=== PATIENT | female | born 1940 | race Caucasian/White ===

== ENCOUNTER 2017-01-18 23:59 | Inpatient (IN) | payer MEDICARE, OTHER ==
[~2017-01-18] VITALS: Ht 149.9 cm; Wt 59.1 kg
[2017-01-19] VITALS (24 sets, daily range): BP systolic 101–142; BP diastolic 52–80
--- NOTE | 2017-01-19 00:05 | Emergency Room Report ---
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 N Clinical Suspician of Infection? N Mental Status: 1 - Regular (Normal Baseline) Sepsis Risk:Low Sepsis Risk Have you (or family members/close friends) recently traveled outside the [place]? N If Yes, where/when: Have you had exposure to infectious disease within the past month? N TB? Other? Specify: Source patient, RN notes reviewed, family, old records Exam Limitations no limitations Comment acute onset of ant chest pain with sob and fast hr with no syncope - has hx of palpatations but no a fib Cardiac Chest Pain Chest pain indicative of cardiac Yes Timing/Duration 1-3 hours, constant Severity/Quality moderate, pressure Location central Chest Pain Radiation jaw(s), arm(s) Activities at Onset sleeping Nitro Today/Relief no nitro taken today Aspirin Treatment Today 325 mg x 1, provided by ED Beta ray treatment today no beta ray taken Cardiac risk factors + cardiovascular disease, + family history Prior Workup/Intervention no prior cardiac workup Timing/Duration this evening Severity moderate ALLERGIES Coded Allergies: Antihistamines - Alkylamine (Mild, 01/19/17) Penicillins (Mild, 01/19/17) Sulfa (Sulfonamide Antibiotics) (Mild, 01/19/17) codeine (Mild, 01/19/17) Home Medications Reported Medications Omeprazole (Omeprazole 40MG) 40 MG PO DAILY VERAPAMIL HCL (Verelan) 360 MG PO DAILY History Medical History General Angina: No [place]: No Hypertension? No Hyperlipidemia? Yes COPD? No Asthma? No CVA? No Seizures? No Diabetes? Yes GB Disease: No MRSA? No TB? No Cancer? No Immunization Hx DT/Tetanus 5-10 YRS Surgical Hx Previous Surgery?Y Tubal Ligation Hysterect Appendix Social History Smoking Hx Packs/day < 1 Pack Alcohol Alcohol: No Drugs none Review of Systems All Other Systems Reviewed and Negative Constitutional denies fever Eyes denies drainage ENT denies: ear discharge, epistaxis. Respiratory see HPI, denies cough, shortness of breath Cardiovascular see HPI, chest pain, palpitations, denies syncope Gastrointestinal denies abdominal pain, denies diarrhea, denies vomiting Genitourinary denies: dysuria, frequency, hesitancy, hematuria. Musculoskeletal denies back pain, denies joint pain, denies joint swelling, denies neck pain Skin denies rash Psychiatric/Neurological denies headache, denies seizure Physical Exam Vital Signs Vital Signs Date Time Temp Pulse Resp B/P Pulse O2 O2 Flow FiO2 Ox Delivery Rate 01/19 0053 120 18 130/72 97 2 01/19 0002 98.2 144 18 110/80 92 - WBC >12,000 or <4,000 or 10% bands? 2 or more SIRS Criteria Met? B/P:110/80 MAP:90 Creatinine >2.0? UA output<0.5ml/kg/hr for 2 hrs? Platelet count >100,000? Lactate >2.0mmol/1? INR >1.2 or PTT > than 60 sec? Evidence of Organ Dysfunction? Provider documented clinical suspician of infection? N Sepsis Criteria Count: 1 Sepsis Risk: Low Sepsis Risk General Appearance no apparent distress Eye Exam - bilateral eye PERRL, bilateral eye EOMI Ear, Nose, Throat normal ENT inspection Neck supple Respiratory Status No: respiratory distress. Lung Sounds bilateral: lungs clear. 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 No Results/Orders Laboratory Tests 01/19/17 0002: TSH 1.01, Thyroxine (T4) 6.9 01/19/17 0002: Sodium 139, Potassium 4.4, Chloride 105, Carbon Dioxide 27, BUN 17, Creatinine 0.8, Estimated Creat Clear 51, Estimated GFR (MDRD) 70, Glucose 204 H, Calcium 9.1, Total Bilirubin 0.1 L, AST 15, ALT 24, Alkaline Phosphatase 132 H, Creatine Kinase 27, CK-MB (CK-2) Rel Index 3.0, CK and CKMB Interp 0.8, Troponin I < 0.02, Total Protein 7.0, Albumin 3.4, Globulin 3.6 H, Albumin/Globulin Ratio 0.9 L, WBC 13.7 H, RBC 4.50, Hgb 12.9, Hct 40.5, MCV 89.8, RDW 13.2, Plt Count 392, MPV 7.7, Gran % 78.9, Gran # 10.8 H, Lymphocytes % 15.7, Monocytes % 5.0, Eosinophils % 0.2, Basophils % 0.1, Lymphocytes # 2.2, Monocytes # 0.7, Eosinophils # 0.0, Basophils # 0.0, PUBS MCHC 31.4 L, MCH 28.3 Current Medication Orders Sig/Cm Start time Last Medication Dose Route Stop Time Status Admin Aspirin 325 MG ONCE ONE 01/19 30 DC 01/19 PO 01/19 31 0035 Diltiazem HCl 10 MG ONCE ONE 01/19 30 DC 01/19 IV 01/19 31 0034 Diltiazem HCl 100 MG ONCE ONE 01/19 30 AC 01/19 Sodium Chloride 100 ML IV 01/19 1029 0030 Diltiazem HCl 0 .STK-MED ONE 01/19 25 DC IV Diltiazem HCl 0 .STK-MED ONE 01/19 25 DC IV Sodium Chloride 100 ML .STK-MED ONE 01/19 25 DC IV Aspirin 0 .STK-MED ONE 01/194 DC .ROUTE Sodium Chloride 10 ML PRN PRN 01/19 0015 AC IV 01/20 0003 Orders Procedure Date/time Status Decision to admit 01/19 010 Active THYROID STIMULATING HORMONE 01/19 30 Complete THYROXINE (T4) 01/19 30 Complete ELECTROCARDIOGRAM REQUEST 01/20 4 Active CHEST-PORTABLE 01/20 4 Active IV SALINE LOCK 01/20 4 Active CBC WITH AUTO DIFF 01/20 4 Complete CARDIAC ENZYMES 01/20 4 Complete CHEM 12 PROFILE 01/20 4 Complete 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 ST/Twave chgs XRAY/CT/US XRAY/CT/US XRAY chest XR interpretation by reviewed by me Xray Results normal/NAD Departure Departure Time of Disposition 0111 Disposition Still a Patient Clinical Impression Primary Impression: Atrial fibrillation with rapid ventricular response Condition STABLE Referrals [facility] (Family) discussed with dr parra ED Critical Care Critical Care No at 0111
[2017-01-19 00:13] LABS: LYMPH # 2.2 K/mm3 (0.7-4.5); LYMPH % 15.7 % (10-50.0)
[2017-01-19] MEDS ORDERED: OMEPRAZOLE40 MG PO (00:15)
[2017-01-19] MEDS ORDERED: VERELAN360 MG PO (00:16)
--- OUTSIDE RECORDS SUMMARY | 2017-01-19 00:25 | External Medical Summary Rpt | CCD ---
Demographics Preferred Language Barbadian Marital Status Unknown Faith Affiliation Unknown Race Unknown Ethnic Group Unknown Author Author , RICHARD RAMOS Address Unknown Phone Immunization No patient found.
--- OUTSIDE RECORDS SUMMARY | 2017-01-19 00:25 | External Medical Summary Rpt ---
Author Author RICHARD Oliveros, RICHARD [employer] Organization [employer] Address Unknown Phone Unavailable
--- OUTSIDE RECORDS SUMMARY | 2017-01-19 00:25 | External Medical Summary Rpt | CCD ---
Author Author [employer] Organization [employer] Address Unknown Phone Unavailable Purpose Continuity of Care Document - through 2016
--- OUTSIDE RECORDS SUMMARY | 2017-01-19 00:25 | External Medical Summary Rpt | CCD ---
Demographics Preferred Language Austrian Marital Status Unknown Confucianism Affiliation Unknown Race Unknown Ethnic Group Unknown Author Author , RICHARD RAMOS Address Unknown Phone Immunization No patient found.
--- OUTSIDE RECORDS SUMMARY | 2017-01-19 00:25 | External Medical Summary Rpt | CCD ---
Author Author RICHARD Address Unknown Phone [email or web address] Purpose Continuity of Care Document - through 2016
--- OUTSIDE RECORDS SUMMARY | 2017-01-19 00:25 | External Medical Summary Rpt | CCD ---
Author Author RICHARD Address Unknown Phone [email or web address] Purpose Continuity of Care Document - through 2016
[2017-01-19 00:28] LABS: HEMOGLOBIN 12.9 g/dL (12.2-16.2)
[2017-01-19 00:46] LABS: BUN 17 mg/dL (7-18); GFR (ESTIMATED) 70 ML/MIN (59-)
--- OUTSIDE RECORDS SUMMARY | 2017-01-19 01:13 | External Medical Summary Rpt | CCD ---
Author Author , RICHARD Organization RICHARD Address Unknown Phone [email or web address] Purpose Continuity of Care Document - 01-19-2017 through 2016 Results Labs Lab Lab Date Result Refere Interp Status Commen Order Detail nces retati t Range on CBC w auto diff (01-19-2017 00:02) Automat = 0.0 0-0.2 complet ed 017 K/MM3 ed blood 00:02 basophi l count (count/ vo Baso % = 0.1 % 0.1-2.0 complet 017 ed 00:02 Automat = 0.0 0.0-0.4 complet ed 017 K/mm3 ed blood 00:02 eosinop hil count Automat = 0.2 % 0.1-12. complet ed 017 0 ed blood 00:02 eosinop hils/10 0 leukocy t Blood = 10.8 1.8-7.8 complet granulo 017 K/mm3 ed cytes 00:02 automat ed count (numb Granulo = 78.9 37.0-80 complet cyte 017 % .0 ed percent 00:02 age Blood = 40.5 37.0-47 complet hematoc 017 % .0 ed rit 00:02 (volume fractio n) Blood = 12.9 12.2-16 complet hemoglo 017 g/dL .2 ed bin 00:02 measure ment (mass/v olum Absolut = 2.2 0.7-4.5 complet e 017 K/mm3 ed lymphoc 00:02 yte count Lymphoc = 15.7 10-50.0 complet yte 017 % ed count, 00:02 blood, automat ed Mean = 28.3 27-31.2 complet corpusc 017 pg ed ular 00:02 hemoglo bin (MCH) determ Automat = 31.4 31.8-35 complet ed 017 g/dl .4 ed erythro 00:02 cyte mean corpusc ular h Automat = 89.8 82.2-97 complet ed 017 fl .8 ed erythro 00:02 cyte mean corpusc ular v Absolut = 0.7 0.1-1.0 complet e 017 K/mm3 ed monocyt 00:02 e count [place] % = 5.0 % 1.7-9.3 complet 017 ed 00:02 Automat = 7.7 7.4-10. complet ed 017 fl 4 ed blood 00:02 platele t mean volume nevaeh Blood = 392 142-424 complet platele 017 K/mm3 ed t count 00:02 Red = 4.50 4.2-5.4 complet blood 017 M/mm3 ed cell 00:02 count Automat = 13.2 11.5-17 complet ed 017 % .5 ed erythro 00:02 cyte distrib ution width Blood = 13.7 4.8-10. complet leukocy 017 K/MM3 8 ed sharifa 00:02 count (number /volume ) Cardiac enzymes (01-19-2017 00:02) Serum = 3.0 0-4.0 complet or 017 U/L ed plasma 00:02 creatin e kinase MB (CK-M Serum = 0.8 0.0-3.6 complet or 017 ng/mL ed plasma 00:02 creatin e kinase MB measu Serum = 27 26-192 complet or 017 U/L ed plasma 00:02 creatin e kinase measure m Serum < 0.02 0.00-0. complet or 017 ng/mL 06 ed plasma 00:02 troponi n i.cardi ac measu Comprehensive metabolic panel (01-19-2017 00:02) Serum = 0.9 1.1-1.8 complet or 017 ed plasma 00:02 albumin /globul in mass ra Serum = 3.4 3.4-5.0 complet or 017 gm/dL ed plasma 00:02 albumin measure ment (mas Serum = 132 46-116 complet or 017 U/L ed plasma 00:02 alkalin e phospha tase nevaeh Serum = 0.1 0.2-1.0 complet or 017 mg/dL ed plasma 00:02 total bilirub in measure m Serum = 17 7-18 complet or 017 mg/dL ed plasma 00:02 urea nitroge n measure men Serum = 9.1 8.5-10. complet or 017 mg/dL 1 ed plasma 00:02 calcium measure ment (mas Serum = 105 98-107 complet or 017 mmoL/L ed plasma 00:02 chlorid e measure ment (mo Carbon = 27 21.0-32 complet dioxide 017 mmoL/L .0 ed 00:02 measure ment Serum = 0.8 0.55-1. complet or 017 mg/dL 02 ed plasma 00:02 creatin ine measure ment ( Estimat = 51 50-200 complet ion of 017 ML/MIN ed creatin 00:02 ine renal clearan ce Estimat = 70 59- complet ed 017 ML/MIN ed glomeru 00:02 lar filtrat ion rate (GF Comment: REFERENCE RANGE: >60 ML/MIN/1.73 SQUARE METERS Comment: If this patient is -Citizen Of The [place], then multiply the Comment: result by 1.210. Serum = 3.6 1.3-3.2 complet globuli 017 gm/dL ed n 00:02 measure ment (mass/v olume) Serum = 204 74-106 complet or 017 mg/dL ed plasma 00:02 glucose measure ment (mas Serum = 4.4 3.5-5.1 complet potassi 017 mmoL/L ed um 00:02 measure ment Serum = 139 136-145 complet sodium 017 mmoL/L ed measure 00:02 ment Serum = 15 15-37 complet or 017 U/L ed plasma 00:02 asparta te aminotr ansfera ALT = 24 12-78 complet (SGPT) 017 U/L ed ser/rogelio 00:02 s Protein = 7.0 6.4-8.2 complet total 017 gm/dL ed ser/rogelio 00:02 s Thyroxine (01-19-2017 00:02) Thyroxi = 6.9 4.7-13. complet ne 017 ug/dl 3 ed 00:02 Serum or plasma thyroid stimulating horm (01-19-2017 00:02) Serum = 1.01 0.358-3 complet or 017 uIU/ml .740 ed plasma 00:02 thyroid stimula ting horm
--- OUTSIDE RECORDS SUMMARY | 2017-01-19 01:13 | External Medical Summary Rpt | CCD ---
Author Author , RICHARD Organization RICHARD Address Unknown Phone [email or web address] Purpose Continuity of Care Document - 01-19-2017 [...] 017 K/mm3 ed monocyt 00:02 e count [place] % = 5.0 % 1.7-9.3 complet 017 [...] SQUARE METERS Comment: If this patient is -Czech, then multiply the Comment: result by 1.210. [...]
--- OUTSIDE RECORDS SUMMARY | 2017-01-19 01:13 | External Medical Summary Rpt | CCD ---
Demographics Preferred Language Divehi Marital Status Unknown Sikhism Affiliation Unknown Race Unknown Ethnic Group Unknown Author Author , RICHARD RAMOS Address Unknown Phone Immunization Unable to retrieve immunization data due to connection failure with Immunization Registry. Please try again later.
--- OUTSIDE RECORDS SUMMARY | 2017-01-19 01:13 | External Medical Summary Rpt | CCD ---
Demographics Preferred Language Serbian Marital Status Unknown Presybeterian Affiliation Unknown Race Unknown Ethnic Group Unknown Author Author , RICHARD RAMOS Address Unknown Phone Immunization Unable to retrieve immunization data due to connection failure with Immunization Registry. Please try again later.
--- OUTSIDE RECORDS SUMMARY | 2017-01-19 01:14 | External Medical Summary Rpt ---
Author Author RICHARD Oliveros, RICHARD [employer] Organization [employer] Address Unknown Phone Unavailable Results Thyroxine (T4) [Mass/volume] in Serum or Plasma Observa Value Referen Units Interpr Notes Date tion ce etation Range Thyroxine 4.7 - ug/dl Normal No Jan 19 (T4) 13.3 informati 2016 [Mass/vol on in 12:02 AM ume] in source Serum or data Plasma Thyrotropin [Units/volume] in Serum or Plasma Observa Value Referen Units Interpr Notes Date tion ce etation Range Thyrotrop 0.358 - uIU/ml Normal No Jan 19 in 3.740 informati 2016 [Units/vo on in 12:02 AM lume] in source Serum or data Plasma CBC W Auto Differential panel in Blood Observa Value Referen Units Interpr Notes Date tion ce etation Range Basophils 0 - 0.2 K/MM3 Normal No Jan 19 inform2016 [#/volume on in 12:02 AM ] in source Blood by data Automated count Basophils 0.1 - 2.0 % Normal No Jan 19 inform2016 leukocyte on in 12:02 AM s in source Blood by data Automated count Eosinophi 0.0 - 0.4 K/mm3 Normal No Jan 19 ls ati 2016 [#/volume on in 12:02 AM ] in source Blood by data Automated count Eosinophi 0.1 - % Normal No Jan 19 ls/100 12.0 inform2016 leukocyte on in 12:02 AM s in source Blood by data Automated count Granulocy 1.8 - 7.8 K/mm3 High No Jan 19 sharifa informati 2016 [#/volume on in 12:02 AM ] in source Blood by data Automated count Granulocy 37.0 - % Normal No Jan 19 sharifa/100 80.0 informati 2016 leukocyte on in 12:02 AM s in source Blood by data Automated count Hematocri 37.0 - % Normal No Jan 19 t [Volume 47.0 ati 2016 on in 12:02 AM Fraction] source of Blood data Hemoglobi 12.2 - g/dL No No Jan 19 n 16.2 informati informati 2016 [Mass/vol on in on in 12:02 AM ume] in source source Blood data data Lymphocyt 0.7 - 4.5 K/mm3 Normal No Jan 19 es inform2016 [#/volume on in 12:02 AM ] in source Unspecifi data ed specimen by Automated count Lymphocyt 10 - 50.0 % Normal No Jan 19 es inform2016 [#/volume on in 12:02 AM ] in source Unspecifi data ed specimen by Automated count Erythrocy 27 - 31.2 pg Normal No Jan 19 te mean inform2016 corpuscul on in 12:02 AM ar source hemoglobi data n [Entitic mass] Erythrocy 31.8 - g/dl Low No Jan 19 te mean 35.4 inform2016 corpuscul on in 12:02 AM ar source hemoglobi data n concentra tion [Mass/vol ume] by Automated count Erythrocy 82.2 - fl Normal No Jan 19 te mean 97.8 inform2016 corpuscul on in 12:02 AM ar volume source [Entitic data volume] by Automated count Monocytes 0.1 - 1.0 K/mm3 Normal No Jan 192016 [#/volume on in 12:02 AM ] in source Blood by data Automated count Monocytes 1.7 - 9.3 % Normal No Jan 19 /100 inform2016 leukocyte on in 12:02 AM s in source Blood by data Automated count Platelet 7.4 - fl Normal No Jan 19 mean 10.4 2016 volume on in 12:02 AM [Entitic source volume] data in Blood by Automated count Platelets 142 - 424 K/mm3 Normal No Jan 192016 [#/volume on in 12:02 AM ] in source Blood data Erythrocy 4.2 - 5.4 M/mm3 Normal No Jan 19 sharifa informati 2016 [#/volume on in 12:02 AM ] in source Amniotic data fluid Erythrocy 11.5 - % Normal No Jan 19 te 17.5 inform2016 distribut on in 12:02 AM ion width source [Entitic data volume] by Automated count Leukocyte 4.8 - K/MM3 High No Jan 19 s 10.8 informati 2016 [#/volume on in 12:02 AM ] in source Blood data
[2017-01-19] MEDS ORDERED: MILLIPRED5 MG PO (02:19)
[2017-01-19] MEDS ORDERED: ASPIRIN 81MG TA81 MG PO (02:21)
--- NOTE | 2017-01-19 04:56 | RADIOLOGY REPORT PS360 ---
CHEST-PORTABLE HISTORY: CHEST PAIN ORDERING PHYSICIAN: Myron Gaston MD PATIENT AGE: 76 years COMPARISON: 04/08/2010 FINDINGS: The cardiomediastinal silhouette and pulmonary vascularity are within normal limits. The lungs are clear without infiltrates, suspicious nodules, or pleural effusions. Calcified granulomas present in the right lung base. No acute bony abnormalities. IMPRESSION: No acute finding
--- NOTE | 2017-01-19 07:53 | PHARMACY CLINIC NOTE ---
Patient Demographics Patient Demographics Admission date: 01/19/17 Date: 01/19/17 Time: 075 Allergies Coded Allergies: Antihistamines - Alkylamine (Mild, 01/19/17) Penicillins (Mild, 01/19/17) Sulfa (Sulfonamide Antibiotics) (Mild, 01/19/17) codeine (Mild, 01/19/17) HEIGHT- FT: 4 IN: 11.00 K.081 VTE General Information Labs: Laboratory Tests 01/19 2 Hematology Hgb (12.2 - 16.2 g/dL) 12.9 Hct (37.0 - 47.0 %) 40.5 Plt Count (142 - 424 K/mm3) 392 Disclaimer The following section includes nursing documentation that has been pulled in for pharmacy review. Patient's VTE score: 1 Patient's VTE Risk: VERY LOW RISK Clinical trial participant? No VTE prophylaxis NQF [id number] VTE prophylaxis ordered? Yes Type of prophylaxis/treatment: SHEREE at 5702
[2017-01-19] MEDS ORDERED: MEDROL 4MG. DOSE4 MG PO (07:54)
--- NOTE | 2017-01-19 08:35 | HISTORY AND PHYSICAL REPORT ---
Demographics: Admit date: 01/19/17 Chief complaint: chest pain, palpitations PRIMARY DIAGNOSIS: atrial fib RVR Allergies: Coded Allergies: Antihistamines - Alkylamine (Mild, 01/19/17) Penicillins (Mild, 01/19/17) Sulfa (Sulfonamide Antibiotics) (Mild, 01/19/17) codeine (Mild, 01/19/17) History of present illness: History of present illness: 76 year old female with a history of atrial fibrillation, tobacco use and AAA presented to the ED last last with chest pain, diaphoresis and palpitations. Patient reports she felt good yesterday. She went to work at [employer] [place] and had no issues throughout the day. She went to bed around 2200 and woke up about an hour later with severe 10/10 midsternal chest pain that radiated up her neck and into her chin. It was accompanied by palpitations, diaphoresis and a "floating feeling." She had a similar episode 8-9 years ago and was hospitalized at [facility] for a few days. Denies previous heart cath or stents. She is following by Dr. Agarwal for her atrial fib which has been controlled since previous hospitalization. Patient further reports she was diagnosed with bronchitis by her PCP is undergoing treatment with azithromycin, albuterol and steroids. She has a productive cough, wheezing and mild shortness of air. On presentation to the ED she was found to be in uncontrolled A. Fib rate 150's. EKG showed no acute ischemia. CXR showed no acute pathology. She was started on a Cardizem infusion and admitted to step-down unit for further evaluation. Patient denies any further chest pain through the night. Serial EKGs and troponins were negative. Cardiology consulted for evaluation. Past medical history: Family HX Diabetes Yes CAD No Hypertension No Hyperlipidemia No Cancer Yes TB No Immunization HX DT/Tetanus 5-10 YRS Flu Refused Pneumonia Never Had TB Test in last year No General CAD? No Angina: No ND: No Hypertension? No Hyperlipidemia? Yes CHF? No DVT? No PE? No COPD? No Asthma? No Anemia? No GERD? Yes Gastric ulcers? No GI Bleed? No Hernia? No Thyroid Problems? No Hypothyroidism? No CVA? No Seizures? No Diabetes? Yes Insulin Dependent: No Insulin Pump: No Home FSBS? No Renal Insuffiency? No UTI? No Stones? No BPH? No GB Disease: No Nephritic Syndrome? No Asplenia? No Hepatitis? No Sickle Cell Disease? No Arthritis? No Migraines? No Cataracts? No Glaucoma? No MRSA? No HIV? No TB? No Anxiety? No Depression? No Cancer? No More? Yes Additional hx: ABDOMINAL AORTIC ANEURYSM Past Surgical HX Previous Surgery?Y Tubal Ligation Hysterect Appendix Current home meds: Reported Medications VERAPAMIL HCL (Verelan) 360 MG PO DAILY ASPIRIN (Aspirin) 81 MG PO DAILY Methylprednisolone (Medrol Dose Wolf) 4 MG PO UD #21 Omeprazole (Omeprazole 40MG) 40 MG PO DAILY Social Hx: Smoking HX Tobacco Yes Type Cigarettes Packs/day < 1 PACK Alcohol Alcohol: No Hx of Drug Use Drug Use? No Patien't marital status is Patient's support system is excellent Review of systems: Constitutional No: no symptoms reported. Eyes No: no symptoms reported. Ears, Nose, Mouth, Throat No no symptoms reported Respiratory see HPI, cough, shortness of breath, wheezing. Cardiovascular see HPI Gastrointestinal/Abdominal No no symptoms reported, No see HPI, No abdomen distended, No abdominal pain, No blood streaked bowels, No constipated, No diarrhea, No difficulty swallowing, No nausea, No poor appetite, No poor fluid intake, No rectal bleeding, No vomiting, No other Genitourinary No: no symptoms reported. Musculoskeletal No: no symptoms reported. Skin No: no symptoms reported. Neurological No: no symptoms reported. Psychiatric No: no symptoms reported. Exam: Lab data for last 24 hours: Laboratory Tests 01/19/17 0651: Creatine Kinase 22 L, CK-MB (CK-2) Rel Index 4.5 H, CK and CKMB Interp 1.0, Troponin I < 0.02 01/19/17 0400: Creatine Kinase 23 L, CK-MB (CK-2) Rel Index 4.3 H, CK and CKMB Interp 1.0, Troponin I < 0.02 01/19/17 0002: TSH 1.01, Thyroxine (T4) 6.9 01/19/17 0002: B-Natriuretic Peptide 38, Triglycerides 108, Cholesterol 255 H, LDL Cholesterol 170.4 H, VLDL Cholesterol 21.6, HDL Cholesterol 63.0 H 01/19/17 0002: Sodium 139, Potassium 4.4, Chloride 105, Carbon Dioxide 27, BUN 17, Creatinine 0.8, Estimated Creat Clear 51, Estimated GFR (MDRD) 70, Glucose 204 H, Calcium 9.1, Total Bilirubin 0.1 L, AST 15, ALT 24, Alkaline Phosphatase 132 H, Creatine Kinase 27, CK-MB (CK-2) Rel Index 3.0, CK and CKMB Interp 0.8, Troponin I < 0.02, Total Protein 7.0, Albumin 3.4, Globulin 3.6 H, Albumin/Globulin Ratio 0.9 L, WBC 13.7 H, RBC 4.50, Hgb 12.9, Hct 40.5, MCV 89.8, RDW 13.2, Plt Count 392, MPV 7.7, Gran % 78.9, Gran # 10.8 H, Lymphocytes % 15.7, Monocytes % 5.0, Eosinophils % 0.2, Basophils % 0.1, Lymphocytes # 2.2, Monocytes # 0.7, Eosinophils # 0.0, Basophils # 0.0, PUBS MCHC 31.4 L, MCH 28.3 Admission vital signs: 1ST Vital Signs Result Date Time Pulse Ox 92 01/19 2 B/P 110/80 01/19 2 Temp 98.2 01/19 2 Pulse 144 01/19 2 Resp 18 01/19 2 O2 Flow Rate 2 01/19 0053 O2 Delivery ROOM AIR 01/19 0215 Exam General appearance: alert, active, awake, face symmetric, no acute distress Eyes: anicteric ENT: mucous membranes moist Neck: non-tender, no carotid bruit, no JVD, full range of motion, range of motion Cardiovascular: no murmur, normal peripheral pulses, no peripheral edema, irregularly irregular Plan: Problem List 1. Atrial fibrillation with rapid ventricular response Assessment/Plan Rate improved on Cardizem infusion, noted at 110 this morning. Given her symptoms and history there is high suspicion for coronary disease. Consult cardiology for [facility] consideration. 2. Chest pain Assessment/Plan See above. 3. Bronchitis Assessment/Plan Start azithromycin and duonebs. She likely has some underlying COPD given her smoking history. CXR unremarkable. 4. GERD (gastroesophageal reflux disease) Assessment/Plan Well controlled on omeprazole. Plan: See above at 0900
--- NOTE | 2017-01-19 09:05 | CONSULT NOTE ---
Standard Demographics Patient Demo Date of Consultation: 01/19/17 Referring Provider: Myron Gaston MD Reason for Consultation: A. fib with RVR, Angina PRIMARY DIAGNOSIS: atrial fib RVR Problem list Problem list: 1. Tobacco use of one half to one pack per day 60 years. 2. Hypertension 3. History of palpitations, controlled with verapamil therapy 4. History of abdominal aortic aneurysm, last reported measurement of 4.6 cm approximately 2014. 5. History of prediabetes per patient. She does not take medication and controls her blood sugars with her diet. History of present illness: History of present illness: 76-year-old white female with history of hypertension, palpitations and tobacco use was awakened from sleep last evening for severe substernal chest pain with radiation into the neck and shoulders. She came to the emergency department for evaluation was found to be in atrial fibrillation with a rapid ventricular response in the 140s beat per minute. Electrocardiogram shows atrial fibrillation with a rapid ventricular response with nonspecific ST-T wave abnormalities inferiorly and laterally. Patient was started on IV diltiazem with improvement in heart rate and symptoms. Due to the severity of the chest pain and cardiac risk factors cardiology consulted for evaluation and recommendation. Troponins have returned normal. Patient has pain free at this time. She remains on IV diltiazem with a heart rate of 100-110 bpm. Past Medical History: General: Hypertension No CVA No Seizures No TB No COPD No Asthma No Diabetes Yes Insulin Dependent No Insulin Pump No Angina No MN No Hyperlipidemia Yes Urinary No Cancer No Rheumatic H.D. No Ulcers No MRSA No GB Disease No Other ACID REFLUX Additional hx ABDOMINAL AORTIC ANEURYSM Past Surgical HX: Previous Surgery?Y Tubal Ligation Hysterect Appendix Allergies Coded Allergies: Antihistamines - Alkylamine (Mild, 01/19/17) Penicillins (Mild, 01/19/17) Sulfa (Sulfonamide Antibiotics) (Mild, 01/19/17) codeine (Mild, 01/19/17) Home medications: Reported Medications VERAPAMIL HCL (Verelan) 360 MG PO DAILY ASPIRIN (Aspirin) 81 MG PO DAILY Methylprednisolone (Medrol Dose Wolf) 4 MG PO UD #21 Omeprazole (Omeprazole 40MG) 40 MG PO DAILY Current Medications: Current Medications Albuterol/Ipratropium 3 ML QIDRT INH Azithromycin 500 MG DAILY IV Sodium Chloride 250 ML Polyethylene Glycol 17 GM DAILY PO Sodium Chloride 100 ML .STK-MED ONE IV (DC) Diltiazem HCl 0 .STK-MED ONE IV (DC) Diltiazem HCl 100 MG .Q10H IV Sodium Chloride 100 ML Digoxin 0.125 MG ONCE ONE IV (DC) Digoxin 0 .STK-MED ONE .ROUTE (DC) Acetaminophen 650 MG Q4HP PRN PO Enoxaparin Sodium 50 MG ONCE ONE SC (DC) Influenza Virus Vaccine Quadrival 0.5 ML PRN PRN IM Nicotine 21 MG DAILYP PRN TD Ondansetron HCl 4 MG Q6HP PRN IV Sodium Chloride 1,000 ML .Q20H IV Enoxaparin Sodium 0 .STK-MED ONE SC (DC) Aspirin 325 MG ONCE ONE PO (DC) Diltiazem HCl 10 MG ONCE ONE IV (DC) Diltiazem HCl 100 MG ONCE ONE IV Sodium Chloride 100 ML Diltiazem HCl 0 .STK-MED ONE IV (DC) Diltiazem HCl 0 .STK-MED ONE IV (DC) Sodium Chloride 100 ML .STK-MED ONE IV (DC) Aspirin 0 .STK-MED ONE .ROUTE (DC) Sodium Chloride 10 ML PRN PRN IV Immunization HX DT/Tetanus 5-10 YRS AGO Flu Refused Pneumonia Never Had TB Test in last year No Family history Family HX Family Hx Insignificant No Diabetes Yes CAD No Hypertension No Hyperlipidemia No Cancer Yes TB No Social Hx: Smoking HX Tobacco Yes Type Cigarettes Packs/day < 1 PACK Alcohol Alcohol: No Hx of Drug Use Drug Use? No Patien't marital status is Patient's support system is excellent Review of systems: Constitutional see HPI. Respiratory SOB with excertion, wheezing. Cardiovascular see HPI, chest pain Gastrointestinal/Abdominal No no symptoms reported Genitourinary No: no symptoms reported. Musculoskeletal No: no symptoms reported. Neurological No: no symptoms reported. Exam: Admission Vital Signs: 1ST Vital Signs Result Date Time Pulse Ox 92 01/19 2 B/P 110/80 01/19 2 Temp 98.2 01/19 2 Pulse 144 01/19 2 Resp 18 01/19 2 O2 Flow Rate 2 01/19 0053 O2 Delivery OXYGEN 01/19 201 Last Vital Signs: Vital Signs Result Date Time Pulse Ox 95 01/19 814 B/P 113/56 01/19 814 O2 Flow Rate 1 01/19 814 Temp 98.2 01/19 814 Pulse 108 01/19 0814 Resp 20 01/19 08 O2 Delivery OXYGEN 01/19 0600 Exam General appearance: alert, awake, no acute distress Neck: no carotid bruit, no JVD Cardiovascular: irregularly irregular Respiratory: wheezing ABD: soft, no tenderness Extremities: moves all, no peripheral edema Neuro: alert, intact, oriented Laboratory data: Laboratory Tests 01/19/17 0651: Creatine Kinase 22 L, CK-MB (CK-2) Rel Index 4.5 H, CK and CKMB Interp 1.0, Troponin I < 0.02 01/19/17 0400: Creatine Kinase 23 L, CK-MB (CK-2) Rel Index 4.3 H, CK and CKMB Interp 1.0, Troponin I < 0.02 01/19/17 0002: TSH 1.01, Thyroxine (T4) 6.9 01/19/17 0002: B-Natriuretic Peptide 38, Triglycerides 108, Cholesterol 255 H, LDL Cholesterol 170.4 H, VLDL Cholesterol 21.6, HDL Cholesterol 63.0 H 01/19/17 0002: Sodium 139, Potassium 4.4, Chloride 105, Carbon Dioxide 27, BUN 17, Creatinine 0.8, Estimated Creat Clear 51, Estimated GFR (MDRD) 70, Glucose 204 H, Calcium 9.1, Total Bilirubin 0.1 L, AST 15, ALT 24, Alkaline Phosphatase 132 H, Creatine Kinase 27, CK-MB (CK-2) Rel Index 3.0, CK and CKMB Interp 0.8, Troponin I < 0.02, Total Protein 7.0, Albumin 3.4, Globulin 3.6 H, Albumin/Globulin Ratio 0.9 L, WBC 13.7 H, RBC 4.50, Hgb 12.9, Hct 40.5, MCV 89.8, RDW 13.2, Plt Count 392, MPV 7.7, Gran % 78.9, Gran # 10.8 H, Lymphocytes % 15.7, Monocytes % 5.0, Eosinophils % 0.2, Basophils % 0.1, Lymphocytes # 2.2, Monocytes # 0.7, Eosinophils # 0.0, Basophils # 0.0, PUBS MCHC 31.4 L, MCH 28.3 Plan: Assessment: 1. Atrial fibrillation with a rapid ventricular response, improved with IV diltiazem. Echocardiogram has been performed this morning and results are pending at this time. Patient did receive Lovenox therapy last evening. Thyroid functions are normal. Concern for ischemic mediated etiology. 2. Chest pain with abnormal electrocardiogram. Troponins normal but patient with cardiac risk factors and a COLLEEN score of 3 (age, risk factors, daily aspirin use ) would recommend proceeding with cardiac catheterization. Patient would not be a candidate for stress testing due to severe lung disease and wheezing on exam. 3. Tobacco use, cessation recommended 4. Hypertension, controlled 5. Lipidemia with LDL of 170 this admission. Will start statin therapy. 6. Prediabetic per family and patient. 7. AAA of 4.6 cm per patient and family in 2015. Will obtain abdominal ultrasound prior to cath. Recommendations: Discussed with Dr. Rey. See above. at 0905
--- NOTE | 2017-01-19 13:34 | RADIOLOGY REPORT PS360 ---
CARDIAC CATHETERIZATION DATE OF CATHETERIZATION:01/19/2017 11:56 AM PROCEDURES: 1. Left heart catheterization 2. Left ventriculogram 3. Selective coronary angiogram 4. Drug-eluting stent deployment to the proximal circumflex artery 5. Drug-eluting stent deployment to the proximal LAD 6. Drug-eluting stent deployment to the proximal mid chronically occluded right coronary artery INDICATION FOR TEST: 1. Unstable angina 2. Coronary artery disease 3. Atrial fibrillation Informed consent was obtained prior to the procedure. COMPLICATIONS: None ESTIMATED BLOOD LOSS: Less than 10 ml. TECHNIQUE: One percent lidocaine used to anesthetize the right anterior aspect of the wrist. The right radial artery was accessed via the Seldinger technique. A 6 [place] sheath was placed in the right radial artery. 2.5 mg of verapamil, 800 mcg of nitroglycerin and 5000 U Heparin were given through the arterial sheath. A trap catheter was used to perform left heart catheterization left ventriculogram and selective coronary angiogram. At the end of the diagnostic angiogram and additional 2000 units of heparin was administered intravenously. An [employer] left guide catheter was placed in the left main artery and a choice PT extra-support wire was placed into the circumflex artery and then into the first obtuse marginal artery. A 3 mm x 26 mm resolute Brock stent was deployed at 15 shai reducing the severe stenosis to 0%. COLLEEN-3 flow was present before and after the procedure. The wire was pulled back and placed into the LAD and a 3.5 x 26 mm resolute [place] stent was deployed at 18 shai. A 4 mm x 12 mm balloon was in placed in the proximal aspect of the stent and deployed at 20 shai in order to post dilate. COLLEEN-3 flow was present before and after the procedure. 800 mcg of intracoronary nitroglycerin was administered. The guide catheter was then used intubate the right coronary artery and a fresh choice PT floppy was placed into the chronic occlusion. I was unable to pass the wire therefore 2 mm x 12 mm sprinter balloon was placed on the wire and then in the proximal portion of the right coronary artery. This allowed additional support and a then pushed the wire through the chronic occlusion. The balloon was inflated at 20 shai on 2 occasions. Following this a 3 mm x 34 mm resolute [place] stent was deployed at 15 shai reducing the subtotal occlusion to 0%. COLLEEN I flow was present at the beginning of the procedure and COLLEEN-3 flow at the end of the procedure. 800 mcg of intracoronary nitroglycerin was then administered. The first ACT 330 seconds prior to any stent implantation. The closing ACT 278 seconds therefore an additional 2000 units of heparin was administered. Patient was sedate and unable to take Brilinta at the time of dictation. The apparatus was removed the sheath was removed good hemostasis was achieved using TR banding patient was transferred to the postop holding area in stable condition ANGIOGRAPHIC RESULTS: 1. The left main artery normal 2. The left anterior descending artery has proximal complex 50, 60, and 70% stenoses followed by mid vessel sequential 40% stenoses after a large second diagonal artery. 3. The circumflex artery is nondominant yet still gives rise to 2 large obtuse marginal arteries. Proximally the circumflex artery has an 82% stenosis which extends into the ostium of this large 3 mm first obtuse marginal artery. The first obtuse marginal artery has an ostial 90% stenosis 4. The right coronary artery is a dominant vessel and proximally occluded which fills via left to right collaterals and right to right collaterals 5. The WILLIAMSON ventriculogram reveals hyperdynamic ventricle with an estimated ejection fraction of 80-85% 6. The left ventricular end-diastolic pressure 20 mmHg IMPRESSION: 1. Severe three-vessel coronary artery disease as described above 2. Successful complete percutaneous revascularization 3. Successful stenting the proximal LAD severe disease reduced to 0% with 1 drug-eluting stent 4. Successful stenting of the proximal circumflex artery extending into the large obtuse marginal artery, severe disease reduced to 0% with 1 drug-eluting stent 5. Chronically occluded dominant right coronary artery with successful revascularization and drug-eluting stenting 100% stenosis reduced to 0% with 1 drug-eluting stent 6. Hyperdynamic ejection fraction at 85% 7. Mildly elevated LVEDP PLAN: 1. Brilinta and aspirin 2. Anticoagulation for atrial fibrillation 3. Patient needs diltiazem or verapamil because of her hyperdynamic ventricle as well as beta blockers such as bisoprolol or long-acting metoprolol. 4. Avoid digoxin due to her hyperdynamic ventricle 5. LDL less than 55 6. Cardiac rehabilitation 7. Avoidance of tobacco products 8. Aggressive risk factor modification
--- NOTE | 2017-01-19 13:36 | RADIOLOGY REPORT PS360 ---
US AORTA (RETROPERITONEAL) HISTORY: ABDOMINAL AORTIC ANEURYSM ORDERING PHYSICIAN: Myron Gaston MD PATIENT AGE: 76 years COMPARISON: None FINDINGS: There is generalized atherosclerotic calcified plaque of the aorta with tortuosity. There is mild fusiform dilatation of the abdominal aorta just above the umbilicus measuring up to 4 cm with atherosclerotic plaque and mural thrombus at this region. The proximal common iliacs are unremarkable. IMPRESSION: 4 cm infrarenal abdominal aortic aneurysm with atherosclerotic changes.
--- NOTE | 2017-01-19 15:22 | RADIOLOGY REPORT PS360 ---
PROCEDURE: 2-D M-mode and color Doppler study INDICATIONS FOR THE TEST: Chest pain X COPD Heart Murmur Tobacco Smoking Palpitations Fatigue Syncope Edema Hypertension Diabetes Mellitus Rheumatic Fever SOB MELENDREZ Obesity Hyperlipidemia Family History HD Additional History AF PATIENT INFORMATION HEIGHT: 59 WEIGHT:119 GENDER: Female B/P:96/58 2-D/M-MODE INTERPRETATION: 2-D MEASUREMENTS OBSERVED VALUES IN CMS Right Ventricular Dimension (RVDd) 1.6 Interventricular Septum (Thickness)(IVsd) .9 Left Ventricular Internal Dimensions(LVIDd) 4.8 Left Ventricular Posterior Wall (Thickness)(LVPWd) .9 Aortic Root 2.8 Aortic Cusp Separation 1.6 Left Atrial Dimensions (LAD) 3.2 2D 1. Left atrium is normal size, left ventricle is normal size, there is no concentric left ventricular hypertrophy, visually estimated ejection fraction 55% with no obvious regional wall motion abnormality. 2. The right atrium and right ventricle are mildly enlarged with normal contractility. 3. The aortic valve, mitral and tricuspid valvular grossly normal. 4. The pulmonic valve is poorly visualized. 5. There is no significant pericardial effusion noted. DOPPLER INTERROGATION: Doppler interrogation of the aortic, mitral and tricuspid valvular presence of mild mitral and tricuspid regurgitation, calculated right ventricular systolic pressure is 40 mmHg consistent with mild pulmonary hypertension. CONCLUSION: 1. Normal left ventricle size, preserved left ventricular systolic function, visually estimated ejection fraction 55% with no obvious regional wall motion abnormality. 2. Mild mitral and tricuspid regurgitation, calculated right ventricular systolic pressure is 40 mmHg consistent with mild pulmonary hypertension. 3. No significant pericardial effusion noted.
[2017-01-20] VITALS: BP 117/64
[2017-01-20 02:00] VITALS: BP 110/71
[2017-01-20 04:00] VITALS: BP 123/59
[2017-01-20 05:53] LABS: LYMPH # 3.4 K/mm3 (0.7-4.5); LYMPH % 29.4 % (10-50.0)
[2017-01-20 06:00] VITALS: BP 116/59
[2017-01-20 06:00] LABS: HEMOGLOBIN 11.5 g/dL (12.2-16.2)
[2017-01-20 08:00] VITALS: BP 133/81
--- NOTE | 2017-01-20 08:02 | DISCHARGE SUMMARY STANDARD ---
Demographics Admit date: 01/19/17 Discharge date: 01/20/17 History of present illness History of present illness 76-year-old white female with history of hypertension, palpitations and tobacco use was awakened from sleep last evening for severe substernal chest pain with radiation into the neck and shoulders. She came to the emergency department for evaluation was found to be in atrial fibrillation with a rapid ventricular response in the 140s beat per minute. Electrocardiogram shows atrial fibrillation with a rapid ventricular response with nonspecific ST-T wave abnormalities inferiorly and laterally. Patient was started on IV diltiazem with improvement in heart rate and symptoms. Due to the severity of the chest pain and cardiac risk factors cardiology consulted for evaluation and recommendation. Troponins have returned normal. Patient has pain free at this time. She remains on IV diltiazem with a heart rate of 100-110 bpm. Hospital Course Hospital Course: Patient was admitted, given her pain symptoms and risk factors she was taken to cardiology if lab for heart cath. She was found to have significant three-vessel disease and 3 stents were placed. Her heart function was noted to be normal. This procedure resolved her atrial fibrillation. She was observed overnight, felt well. She'll be discharged home today, as her exam today reveals regular heart rate, no murmurs. Lungs are clear except for some smoker's rhonchi. Abdomen soft and she has no edema. Neurologic exam is intact. She'll be discharged on cardiac medicines as noted, nicotine patch, follow-up with cardiology in 4 days and with my office in one week as she wishes to transfer care to our practice. Discharge diagnoses Problem List 1. Atrial fibrillation with rapid ventricular response 2. Chest pain 3. Bronchitis 4. GERD (gastroesophageal reflux disease) 5. Coronary atherosclerosis Medications Medications: Discharge meds are as noted. Follow up Follow up in office in: 6 DAYS with: ALEXANDRE BRANDT APRN at 0802
[2017-01-20] MEDS ORDERED: ASPIRIN 81MG TA81 MG PO (08:04)
[2017-01-20] MEDS ORDERED: BRILINTA90 MG PO (08:05)
[2017-01-20] MEDS ORDERED: LIPITOR40 M1 PO (08:05)
[2017-01-20] MEDS ORDERED: HABITROL21 MG/24 H TD (08:06)
[2017-01-20 08:52] VITALS: BP 116/59
--- NOTE | 2017-01-20 09:00 | ACUTE CARE PROGRESS NOTE (QUA) ---
Progress Notes Subjective Date 01/20/17 Time 0855 Note 76 yo WF in bed in NAD. States she is feeling much better. Relates she is working on weaning off cigarettes. Objective Findings Last VS-Temp:98.1 B/P:116/59 Pulse:59 Resp:16 SaO2:99 OXYGEN Last weight lbs:130 oz:4 K.08 Method:Bed Scales Exam General appearance: alert, awake, no acute distress Cardiovascular: regular rate & rhythm Respiratory: diminished breath sounds Reviewed: medications, vital signs, lab results Assessment/Plan Problem List 1. Atrial fibrillation with rapid ventricular response 2. Chest pain 3. Bronchitis 4. GERD (gastroesophageal reflux disease) 5. Coronary atherosclerosis Assessment/Plan: 3 vessel stenting. On DAPT, statin and CCB (she will resume verapamil at home). No beta ray due to COPD and wheezing on exam. Patient condition Stable Plan: continue current care, Agree with discharge home. Follow up next week. Will need to monitor for recurrent a.fib and possible additional a/c with elevated CHADS-VASc score. This inpt stay is expected to cross 2 MNs from start of care Yes at 0904
== END 2017-01-20 09:20 | disposition home or self-care (01) | DRG 247 ==
LOC: ER 23:59 → 2ND 01-19 01:09
PROVIDERS: Emergency Medicine; Internal Medicine
PROC: 027236Z Dilation of Coronary Artery, Three Arteries with Three Drug-eluting Intraluminal Devices, Percutaneous Approach (ICD-10-PCS; principal; 2017-01-19 11:00)
PROC: B2151ZZ Fluoroscopy of Left Heart using Low Osmolar Contrast (ICD-10-PCS; principal; 2017-01-19 11:00)
PROC: B2111ZZ Fluoroscopy of Multiple Coronary Arteries using Low Osmolar Contrast (ICD-10-PCS; principal; 2017-01-19 11:00)
PROC: 4A023N7 Measurement of Cardiac Sampling and Pressure, Left Heart, Percutaneous Approach (ICD-10-PCS; principal; 2017-01-19 11:00)
DX: I25.110 Atherosclerotic heart disease of native coronary artery with unstable angina pectoris (principal); J44.9 Chronic obstructive pulmonary disease, unspecified; R06.09 Other forms of dyspnea; I48.91 Unspecified atrial fibrillation; Z72.0 Tobacco use; I10 Essential (primary) hypertension
CPT/HCPCS: C1725; C1769; C1876; J0456; J1644; Q9967

== ENCOUNTER 2017-02-06 11:21 | Emergency (ER) | payer MEDICARE, OTHER ==
[~2017-02-06] VITALS: Ht 149.9 cm; Wt 58.1 kg
[~2017-02-06 11:21] MED LIST: ASPIRIN 81MG TA81 MG PO; BRILINTA90 MG PO; HABITROL21 MG/24 H TD; LIPITOR40 M1 PO; MEDROL 4MG. DOSE4 MG PO; MILLIPRED5 MG PO; OMEPRAZOLE40 MG PO; VERELAN360 MG PO
[2017-02-06 11:35] LABS: HEMOGLOBIN 11.8 g/dL (12.2-16.2); LYMPH # 2.3 K/mm3 (0.7-4.5); LYMPH % 29.7 % (10-50.0)
[2017-02-06] MEDS ORDERED: BISOPROLOL FUMA10 MG PO (11:35)
[2017-02-06] MEDS ORDERED: BUPROPION HYDR150 M1 PO (11:35)
--- NOTE | 2017-02-06 11:45 | Emergency Room Report ---
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 PT REPORTS HAS BEEN FEELING WEAK FOR SEVERAL DAYS. 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 N Clinical Suspician of Infection? N Mental Status: 1 - Regular (Normal Baseline) Sepsis Risk:Low Sepsis Risk Have you (or family members/close friends) recently traveled outside the [place]? N If Yes, where/when: Have you had exposure to infectious disease within the past month? N TB? Other? Specify: Patient at rest in car today when felt sharp intermittent chest pain, substernal , nonradiating, no SOB, no n/v, no diaphoresis, then steady, then self resolving s/p one hour. Noted diminished HR this week; newly on Verapamil by her report s/ p stent placement three weeks ago per Dr. Rey. No calf pain. No syncope. Denies palpitations. ALLERGIES Coded Allergies: Antihistamines - Alkylamine (Mild, 01/19/17) Penicillins (Mild, 01/19/17) Sulfa (Sulfonamide Antibiotics) (Mild, 01/19/17) codeine (Mild, 01/19/17) Home Medications Active Scripts ASPIRIN (Aspirin) 81 MG PO DAILY #30 TAB Ref 1 Prov: 01/20/17 Ticagrelor (Brilinta) 90 MG PO BID #60 TAB Ref 3 Prov: 01/20/17 Atorvastatin Calcium (Lipitor 40MG) 40 MG PO QHS #30 TAB Ref 2 Prov: 01/20/17 Reported Medications VERAPAMIL HCL (Verelan) 360 MG PO DAILY Omeprazole (Omeprazole 40MG) 40 MG PO DAILY Bupropion Hcl (Bupropion HCl Sr) 150 MG PO BID Bisoprolol Fumarate 10 MG PO DAILY History Medical History General CAD? Yes Angina: No [place]: No Hypertension? Yes Hyperlipidemia? Yes CHF? No DVT? No PE? No COPD? No Asthma? No Anemia? No GERD? Yes Gastric ulcers? No GI Bleed? No Hernia? No Thyroid Problems? No Hypothyroidism? No CVA? No Seizures? No Diabetes? Yes Insulin Dependent: No Insulin Pump: No Home FSBS? No Renal Insuffiency? No End Stage Renal Disease? No UTI? No Stones? No BPH? No GB Disease: No Nephritic Syndrome? No Asplenia? No Hepatitis? No Sickle Cell Disease? No Arthritis? No Migraines? No Cataracts? No Glaucoma? No MRSA? No HIV? No TB? No Anxiety? No Depression? No Cancer? No More? Yes Additional hx: ABDOMINAL AORTIC ANEURYSM Immunization Hx DT/Tetanus 5-10 YRS Flu Refused Pneumonia Refuses Surgical Hx Previous Surgery?Y Tubal Ligation Hysterect Appendix CARDIAC STENTS X2 2017 Family History Family Hx Diabetes Yes CAD No Hypertension No Hyperlipidemia No Cancer Yes TB No Social History Smoking Hx Smoker: Former Smoker Tobacco: No Packs/day < 1 Pack Alcohol Alcohol: No Review of Systems All Other Systems Reviewed and Negative Cardiovascular see HPI Physical Exam Vital Signs Vital Signs Date Time Temp Pulse Resp B/P Pulse O2 O2 Flow FiO2 Ox Delivery Rate 02/06 1330 46 18 123/67 99 02/06 1257 48 18 111/59 96 02/06 1224 53 18 147/94 98 02/06 1121 98.1 47 18 128/79 97 General Appearance normal appearance, WD/WN, no apparent distress Eye Exam - bilateral eye normal exam, bilateral eye PERRL, bilateral eye EOMI Neck normal inspection, non-tender, supple, full range of motion Respiratory Status Yes: trachea midline, chest symmetrical, non tender chest. No: respiratory distress, tender on palpation, use of accessory muscles, pain on inspiration, pain on expiration, productive cough, non productive cough. Lung Sounds bilateral: normal breath sounds, lungs clear. Cardiovascular normal exam, regular rate/rhythm, no peripheral edema, no gallop, no JVD, no murmur, no rub, normal peripheral pulses (bradycardic on monitor) Peripheral Pulses Pulses normal Yes Gastrointestinal normal bowel sounds, normal exam, non tender, soft, no organomegaly, no pulsatile mass Extremities non-tender, normal range of motion, normal inspection, no calf tenderness, no pedal edema Strength 5 Upper Ext (L), 5 Upper Ext (R), 5 Lower Ext (L), 5 Lower Ext (R) Neurologic alert, normal exam, no motor/sensory deficits, oriented x 3 Glascow Coma Scale Glascow Coma Scale Response Value EYE response: 4 Spontaneously 4 MOTOR response: 6 OBEYS 6 VERBAL response: 5 Oriented & Converses 5 Total 15 Skin intact, normal color, warm/dry Medical Decision Making LABS/Meds/Orders Pt receiving controlled substance in ED? No Results/Orders Laboratory Tests 02/06/17 1310: Troponin I < 0.02 02/06/17 1125: Sodium 138, Potassium 4.4, Chloride 105, Carbon Dioxide 26, BUN 12, Creatinine 0.9, Estimated Creat Clear 48 L, Estimated GFR (MDRD) 61, Glucose 127 H, Calcium 8.6, Total Bilirubin 0.3, AST 11 L, ALT 15, Alkaline Phosphatase 103, Creatine Kinase 30, CK-MB (CK-2) Rel Index 1.7, CK and CKMB Interp < 0.5, Troponin I < 0.02, Total Protein 6.4, Albumin 3.4, Globulin 3.0, Albumin/ Globulin Ratio 1.1, WBC 7.6, RBC 4.07 L, Hgb 11.8 L, Hct 36.3 L, MCV 89.3, RDW 13.0, Plt Count 308, MPV 8.0, Gran % 59.8, Gran # 4.5, Lymphocytes % 29.7, Monocytes % 6.8, Eosinophils % 3.0, Basophils % 0.7, Lymphocytes # 2.3, Monocytes # 0.5, Eosinophils # 0.2, Basophils # 0.1, PUBS MCHC 32.5, MCH 29.0 Current Medication Orders Sig/Cm Start time Last Medication Dose Route Stop Time Status Admin Sodium Chloride 10 ML PRN PRN 02/06 1130 AC IV 02/07 112 Orders Procedure Date/time Status TROPONIN I 02/06 1304 Complete ELECTROCARDIOGRAM REQUEST 02/06 1127 Active CHEST(2 VIEWS-NOT PORTABLE) 02/06 1127 Active IV SALINE LOCK 02/06 1127 Active CLASSROOM PARAPROFESSIONAL 02/06 1127 Active CBC WITH AUTO DIFF 02/06 1127 Complete CARDIAC ENZYMES 02/06 1127 Complete CHEM 12 PROFILE 02/06 1127 Complete 12 LEAD EKG-[facility] (INITIAL) 02/06 UNK Active CM/EKG CM/EKG EKG rate, NSR, rhythm, no evid. of ischemic chgs, normal QRS, normal EKG ( short ND, sinus arrhy;Bradycar) XRAY/CT/US XRAY/CT/US XRAY chest XR interpretation by reviewed by me Xray Results normal/NAD, prior calcified granulomas noted; somewhat calcified aortic knob Consult MD Physician Consult Consult/PCP Verapamil to 180 mg PO QD per Jerson Morrison in Cardiology. Hx Afib.f/ u cards Time Called 1214 Reason Pt. Condition, Cardiology eval/care Comments pt resting comfortably but bradycardic; will consult cardiology service for recommendations COLLEEN Score for N-Stemi/Angina COLLEEN N-STEMI SCORE COLLEEN N-STEMI SCORE Response Value Age of patient 65 yrs or more 1 Number of risk factors for CAD Presence of 3 or more 1 Prior coronary artery stenosis (seen in angiography) 50% or more 1 ST-Segment deviation on ECG (>1 min) Absent 0 Prior aspirin intake ASA intake in last 7 days 1 Severe anginal chest pain No or 1 episode in 24h 0 Elevated cardiac markers(CK-MB or troponin) Absent 0 Total 4 Departure Departure Time of Disposition 1353 Disposition DC Home or Self Care(routine) Clinical Impression Primary Impression: Atypical chest pain Secondary Impressions: Bradycardia, drug induced Condition STABLE Referrals Marilin HARRIS,Myron (Family) Heath Rey MD Patient Instructions DI for Bradycardia Additional Instructions Jerson Morrison says to DECREASE Verapamil to only take 180 mg by mouth daily: that's half of what you are taking now. Continue all other medications as prescribed. See Dr. Rey this week for follow up. Discharge Counseling Counseled pt/family regarding diagnosis, test results, medications/RX, home care, follow up needs ED Critical Care Critical Care No at 1354
--- NOTE | 2017-02-06 11:45 | Emergency Room Report ---
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 PT REPORTS HAS BEEN FEELING WEAK FOR SEVERAL DAYS. 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 N Clinical Suspician of Infection? N Mental Status: 1 - Regular (Normal Baseline) Sepsis Risk:Low Sepsis Risk Have you (or family members/close friends) recently traveled outside the [place]? N If Yes, where/when: Have you had exposure to infectious disease within the past month? N TB? Other? Specify: Patient at rest in car today when felt sharp intermittent chest pain, substernal , nonradiating, no SOB, no n/v, no diaphoresis, then steady, then self resolving s/p one hour. Noted diminished HR this week; newly on Verapamil by her report s/ p stent placement three weeks ago per Dr. Rey. No calf pain. No syncope. Denies palpitations. ALLERGIES Coded Allergies: Antihistamines - Alkylamine (Mild, 01/19/17) Penicillins (Mild, 01/19/17) Sulfa (Sulfonamide Antibiotics) (Mild, 01/19/17) codeine (Mild, 01/19/17) Home Medications Active Scripts ASPIRIN (Aspirin) 81 MG PO DAILY #30 TAB Ref 1 Prov: 01/20/17 Ticagrelor (Brilinta) 90 MG PO BID #60 TAB Ref 3 Prov: 01/20/17 Atorvastatin Calcium (Lipitor 40MG) 40 MG PO QHS #30 TAB Ref 2 Prov: 01/20/17 Reported Medications VERAPAMIL HCL (Verelan) 360 MG PO DAILY Omeprazole (Omeprazole 40MG) 40 MG PO DAILY Bupropion Hcl (Bupropion HCl Sr) 150 MG PO BID Bisoprolol Fumarate 10 MG PO DAILY History Medical History General CAD? Yes Angina: No [place]: No Hypertension? Yes Hyperlipidemia? Yes CHF? No DVT? No PE? No COPD? No Asthma? No Anemia? No GERD? Yes Gastric ulcers? No GI Bleed? No Hernia? No Thyroid Problems? No Hypothyroidism? No CVA? No Seizures? No Diabetes? Yes Insulin Dependent: No Insulin Pump: No Home FSBS? No Renal Insuffiency? No End Stage Renal Disease? No UTI? No Stones? No BPH? No GB Disease: No Nephritic Syndrome? No Asplenia? No Hepatitis? No Sickle Cell Disease? No Arthritis? No Migraines? No Cataracts? No Glaucoma? No MRSA? No HIV? No TB? No Anxiety? No Depression? No Cancer? No More? Yes Additional hx: ABDOMINAL AORTIC ANEURYSM Immunization Hx DT/Tetanus 5-10 YRS Flu Refused Pneumonia Refuses Surgical Hx Previous Surgery?Y Tubal Ligation Hysterect Appendix CARDIAC STENTS X2 2017 Family History Family Hx Diabetes Yes CAD No Hypertension No Hyperlipidemia No Cancer Yes TB No Social History Smoking Hx Smoker: Former Smoker Tobacco: No Packs/day < 1 Pack Alcohol Alcohol: No Review of Systems All Other Systems Reviewed and Negative Cardiovascular see HPI Physical Exam Vital Signs Vital Signs Date Time Temp Pulse Resp B/P Pulse O2 O2 Flow FiO2 Ox Delivery Rate 02/06 1330 46 18 123/67 99 02/06 1257 48 18 111/59 96 02/06 1224 53 18 147/94 98 02/06 1121 98.1 47 18 128/79 97 General Appearance normal appearance, WD/WN, no apparent distress Eye Exam - bilateral eye normal exam, bilateral eye PERRL, bilateral eye EOMI Neck normal inspection, non-tender, supple, full range of motion Respiratory Status Yes: trachea midline, chest symmetrical, non tender chest. No: respiratory distress, tender on palpation, use of accessory muscles, pain on inspiration, pain on expiration, productive cough, non productive cough. Lung Sounds bilateral: normal breath sounds, lungs clear. Cardiovascular normal exam, regular rate/rhythm, no peripheral edema, no gallop, no JVD, no murmur, no rub, normal peripheral pulses (bradycardic on monitor) Peripheral Pulses Pulses normal Yes Gastrointestinal normal bowel sounds, normal exam, non tender, soft, no organomegaly, no pulsatile mass Extremities non-tender, normal range of motion, normal inspection, no calf tenderness, no pedal edema Strength 5 Upper Ext (L), 5 Upper Ext (R), 5 Lower Ext (L), 5 Lower Ext (R) Neurologic alert, normal exam, no motor/sensory deficits, oriented x 3 Glascow Coma Scale Glascow Coma Scale Response Value EYE response: 4 Spontaneously 4 MOTOR response: 6 OBEYS 6 VERBAL response: 5 Oriented & Converses 5 Total 15 Skin intact, normal color, warm/dry Medical Decision Making LABS/Meds/Orders Pt receiving controlled substance in ED? No Results/Orders Laboratory Tests 02/06/17 1310: Troponin I < 0.02 02/06/17 1125: Sodium 138, Potassium 4.4, Chloride 105, Carbon Dioxide 26, BUN 12, Creatinine 0.9, Estimated Creat Clear 48 L, Estimated GFR (MDRD) 61, Glucose 127 H, Calcium 8.6, Total Bilirubin 0.3, AST 11 L, ALT 15, Alkaline Phosphatase 103, Creatine Kinase 30, CK-MB (CK-2) Rel Index 1.7, CK and CKMB Interp < 0.5, Troponin I < 0.02, Total Protein 6.4, Albumin 3.4, Globulin 3.0, Albumin/ Globulin Ratio 1.1, WBC 7.6, RBC 4.07 L, Hgb 11.8 L, Hct 36.3 L, MCV 89.3, RDW 13.0, Plt Count 308, MPV 8.0, Gran % 59.8, Gran # 4.5, Lymphocytes % 29.7, Monocytes % 6.8, Eosinophils % 3.0, Basophils % 0.7, Lymphocytes # 2.3, Monocytes # 0.5, Eosinophils # 0.2, Basophils # 0.1, PUBS MCHC 32.5, MCH 29.0 Current Medication Orders Sig/Cm Start time Last Medication Dose Route Stop Time Status Admin Sodium Chloride 10 ML PRN PRN 02/06 1130 AC IV 02/07 112 Orders Procedure Date/time Status TROPONIN I 02/06 1304 Complete ELECTROCARDIOGRAM REQUEST 02/06 1127 Active CHEST(2 VIEWS-NOT PORTABLE) 02/06 1127 Active IV SALINE LOCK 02/06 1127 Active 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 of ischemic chgs, normal QRS, normal EKG ( short [place], sinus arrhy;Bradycar) XRAY/CT/US XRAY/CT/US XRAY chest XR interpretation by reviewed by me Xray Results normal/NAD, prior calcified granulomas noted; somewhat calcified aortic knob Consult MD Physician Consult Consult/PCP Verapamil to 180 mg PO QD per Jerson Morrison in Cardiology. Hx Afib.f/ u cards Time Called 1214 Reason Pt. Condition, Cardiology eval/care Comments pt resting comfortably but bradycardic; will consult cardiology service for recommendations COLLEEN Score for N-Stemi/Angina COLLEEN N-STEMI SCORE COLLEEN N-STEMI SCORE Response Value Age of patient 65 yrs or more 1 Number of risk factors for CAD Presence of 3 or more 1 Prior coronary artery stenosis (seen in angiography) 50% or more 1 ST-Segment deviation on ECG (>1 min) Absent 0 Prior aspirin intake ASA intake in last 7 days 1 Severe anginal chest pain No or 1 episode in 24h 0 Elevated cardiac markers(CK-MB or troponin) Absent 0 Total 4 Departure Departure Time of Disposition 1353 Disposition DC Home or Self Care(routine) Clinical Impression Primary Impression: Atypical chest pain Secondary Impressions: Bradycardia, drug induced Condition STABLE Referrals Marilin HARRIS,Myron (Family) Heath Rey MD Patient Instructions DI for Bradycardia Additional Instructions Jerson oMrrison says to DECREASE Verapamil to only take 180 mg by mouth daily: that's half of what you are taking now. Continue all other medications as prescribed. See Dr. Rey this week for follow up. Discharge Counseling Counseled pt/family regarding diagnosis, test results, medications/RX, home care, follow up needs ED Critical Care Critical Care No at 1354
[2017-02-06 11:57] LABS: BUN 12 mg/dL (7-18)
--- OUTSIDE RECORDS SUMMARY | 2017-02-06 11:58 | External Medical Summary Rpt | CCD ---
Demographics Preferred Language Mauritian Marital Status Unknown Church Affiliation Unknown Race Unknown Ethnic Group Unknown Author Author , RICHARD RAMOS Address Unknown Phone Immunization No patient found.
--- OUTSIDE RECORDS SUMMARY | 2017-02-06 11:58 | External Medical Summary Rpt | CCD ---
Author Author , RICHARD Organization RICHARD Address Unknown Phone [email or web address] Purpose Continuity of Care Document - 01-19-2017 through 2016 Problems Code Diagnosis DOS Provider Status I48.91 UNSPECIFIED ATRIAL FIBRILLATIO N Results Labs Lab Lab Date Result Refere Interp Status Commen Order Detail nces retati t Range on CBC w auto diff (02-06-2017 11:25) Automat = 0.1 0-0.2 complet ed 017 K/MM3 ed blood 11:25 basophi l count (count/ vo Baso % = 0.7 % 0.1-2.0 complet 017 ed 11:25 Automat = 0.2 0.0-0.4 complet ed 017 K/mm3 ed blood 11:25 eosinop hil count Automat = 3.0 % 0.1-12. complet ed 017 0 ed blood 11:25 eosinop hils/10 0 leukocy t Blood = 4.5 1.8-7.8 complet granulo 017 K/mm3 ed cytes 11:25 automat ed count (numb Granulo = 59.8 37.0-80 complet cyte 017 % .0 ed percent 11:25 age Blood = 36.3 37.0-47 complet hematoc 017 % .0 ed rit 11:25 (volume fractio n) Blood = 11.8 12.2-16 complet hemoglo 017 g/dL .2 ed bin 11:25 measure ment (mass/v olum Absolut = 2.3 0.7-4.5 complet e 017 K/mm3 ed lymphoc 11:25 yte count Lymphoc = 29.7 10-50.0 complet yte 017 % ed count, 11:25 blood, automat ed Mean = 29.0 27-31.2 complet corpusc 017 pg ed ular 11:25 hemoglo bin (MCH) determ Automat = 32.5 31.8-35 complet ed 017 g/dl .4 ed erythro 11:25 cyte mean corpusc ular h Automat = 89.3 82.2-97 complet ed 017 fl .8 ed erythro 11:25 cyte mean corpusc ular v Absolut = 0.5 0.1-1.0 complet e 017 K/mm3 ed monocyt 11:25 e count Mobile % = 6.8 % 1.7-9.3 complet 017 ed 11:25 Automat = 8.0 7.4-10. complet ed 017 fl 4 ed blood 11:25 platele t mean volume nevaeh Blood = 308 142-424 complet platele 017 K/mm3 ed t count 11: Red = 4.07 4.2-5.4 complet blood 017 M/mm3 ed cell 11:25 count Automat = 13.0 11.5-17 complet ed 017 % .5 ed erythro 11:25 cyte distrib ution width Blood = 7.6 4.8-10. complet leukocy 017 K/MM3 8 ed sharifa 11:25 count (number /volume ) CBC w auto diff (01-20-2017 05:35) Automat = 0.0 0-0.2 complet ed 017 K/MM3 ed blood 05:35 basophi l count (count/ vo Baso % = 0.3 % 0.1-2.0 complet 017 ed 05:35 Automat = 0.0 0.0-0.4 complet ed 017 K/mm3 ed blood 05:35 eosinop hil count Automat = 0.3 % 0.1-12. complet ed 017 0 ed blood 05:35 eosinop hils/10 0 leukocy t Blood = 7.2 1.8-7.8 complet granulo 017 K/mm3 ed cytes 05:35 automat ed count (numb Granulo 10-20-2 = 62.3 37.0-80 complet cyte 017 % .0 ed percent 05:35 age Blood = 35.9 37.0-47 complet hematoc 017 % .0 ed rit 05:35 (volume fractio n) Blood = 11.5 12.2-16 complet hemoglo 017 g/dL .2 ed bin 05:35 measure ment (mass/v olum Absolut = 3.4 0.7-4.5 complet e 017 K/mm3 ed lymphoc 05:35 yte count Lymphoc = 29.4 10-50.0 complet yte 017 % ed count, 05:35 blood, automat ed Mean = 28.8 27-31.2 complet corpusc 017 pg ed ular 05:35 hemoglo bin (MCH) determ Automat = 31.6 31.8-35 complet ed 017 g/dl .4 ed erythro 05:35 cyte mean corpusc ular h Automat = 91.2 82.2-97 complet ed 017 fl .8 ed erythro 05:35 cyte mean corpusc ular v Absolut = 0.9 0.1-1.0 complet e 017 K/mm3 ed monocyt 05:35 e count Mobile % = 7.7 % 1.7-9.3 complet 017 ed 05:35 Automat = 7.5 7.4-10. complet ed 017 fl 4 ed blood 05:35 platele t mean volume nevaeh Blood = 324 142-424 complet platele 017 K/mm3 ed t count 05:35 Red = 3.94 4.2-5.4 complet blood 017 M/mm3 ed cell 05:35 count Automat = 13.2 11.5-17 complet ed 017 % .5 ed erythro 05:35 cyte distrib ution width Blood = 11.5 4.8-10. complet leukocy 017 K/MM3 8 ed sharifa 05:35 count (number /volume ) Basic metabolic panel (01-20-2017 05:35) Serum = 8.2 8.5-10. complet or 017 mg/dL 1 ed plasma 05:35 calcium measure ment (mas Serum 2 = 109 98-107 complet or 017 mmoL/L ed plasma 05:35 chlorid e measure ment (mo Carbon = 26 21.0-32 complet dioxide 017 mmoL/L .0 ed 05:35 measure ment Serum 2 = 0.7 0.55-1. complet or 017 mg/dL 02 ed plasma 05:35 creatin ine measure ment ( Estimat = 64 50-200 complet ion of 017 ML/MIN ed creatin 05:35 ine renal clearan ce Estimat = 81 59- complet ed 017 ML/MIN ed glomeru 05:35 lar filtrat ion rate (GF Comment: REFERENCE RANGE: >60 ML/MIN/1.73 SQUARE METERS Comment: If this patient is -[place], then multiply the Comment: result by 1.210. Serum = 96 74-106 complet or 017 mg/dL ed plasma 05:35 glucose measure ment (mas Serum = 4.1 3.5-5.1 complet potassi 017 mmoL/L ed um 05:35 measure ment Serum = 141 136-145 complet sodium 017 mmoL/L ed measure 05:35 ment Serum = 13 7-18 complet or 017 mg/dL ed plasma 05:35 urea nitroge n measure men Activated clotting time (01-19-2017 12:30) Activat = 275 74-125 complet ed 017 SEC ed clottin 12:30 g time Activated clotting time (01-19-2017 12:09) Activat 2 = 330 74-125 complet ed 017 SEC ed clottin 12:09 g time Cardiac enzymes (01-19-2017 06:51) Serum = 4.5 0-4.0 complet or 017 U/L ed plasma 06:51 creatin e kinase MB (CK-M Serum = 1.0 0.0-3.6 complet or 017 ng/mL ed plasma 06:51 creatin e kinase MB measu Serum = 22 26-192 complet or 017 U/L ed plasma 06:51 creatin e kinase measure m Serum < 0.02 0.00-0. complet or 017 ng/mL 06 ed plasma 06:51 troponi n i.cardi ac measu Cardiac enzymes (01-19-2017 04:00) Serum = 4.3 0-4.0 complet or 017 U/L ed plasma 04:00 creatin e kinase MB (CK-M Serum = 1.0 0.0-3.6 complet or 017 ng/mL ed plasma 04:00 creatin e kinase MB measu Serum = 23 26-192 complet or 017 U/L ed plasma 04:00 creatin e kinase measure m Serum < 0.02 0.00-0. complet or 017 ng/mL 06 ed plasma 04:00 troponi n i.cardi ac measu CBC w auto diff (01-19-2017 00:02) Automat [...] 017 K/mm3 ed monocyt 00:02 e count Mobile % = 5.0 % 1.7-9.3 complet 017 [...] SQUARE METERS Comment: If this patient is -[place], then multiply the Comment: result by 1.210. [...] ed plasma 00:02 thyroid stimula ting horm Brain natriuretic peptide (01-19-2017 00:02) Brain = 38 0-100 complet natriur 017 pg/mL ed etic 00:02 peptide Lipid profile (01-19-2017 00:02) Total = 255 < 200 complet cholest 017 mg/dL ed ivelisse 00:02 measure ment Serum = 63.0 40-60 complet or 017 MG/DL ed plasma 00:02 cholest ivelisse in HDL measu Serum = 170.4 0-130 complet or 017 mg/dL ed plasma 00:02 cholest ivelisse in LDL measu Serum = 108 30-200 complet or 017 mg/dL ed plasma 00:02 triglyc eride measure ment Serum = 21.6 0-40 complet or 017 ed plasma 00:02 cholest ivelisse in VLDL stephanie
--- OUTSIDE RECORDS SUMMARY | 2017-02-06 11:58 | External Medical Summary Rpt | CCD ---
Demographics Preferred Language Congolese Marital Status Unknown Protestant Affiliation Unknown Race Unknown Ethnic Group Unknown Author Author , RICHARD RAMOS Address Unknown Phone Immunization No patient found.
--- OUTSIDE RECORDS SUMMARY | 2017-02-06 11:58 | External Medical Summary Rpt | CCD ---
Author Author , RICHARD Organization RICHARD Address Unknown Phone [email or web address] Purpose Continuity of Care Document - 01-19-2017 [...] 017 K/mm3 ed monocyt 11:25 e count Cascade % = 6.8 % 1.7-9.3 complet 017 [...] 017 K/mm3 ed monocyt 05:35 e count Cascade % = 7.7 % 1.7-9.3 complet 017 [...] SQUARE METERS Comment: If this patient is -[place], then multiply the Comment: result by 1.210. [...] 017 K/mm3 ed monocyt 00:02 e count Cascade % = 5.0 % 1.7-9.3 complet 017 [...] SQUARE METERS Comment: If this patient is -[place], then multiply the Comment: result by 1.210. [...]
[2017-02-06 11:59] LABS: GFR (ESTIMATED) 61 ML/MIN (59-)
--- OUTSIDE RECORDS SUMMARY | 2017-02-06 11:59 | External Medical Summary Rpt ---
Author Author RICHARD Oliveros, RICHARD [employer] Organization [employer] Address Unknown Phone Unavailable Results Basic metabolic panel in Blood Observa Value Referen Units Interpr Notes Date tion ce etation Range Urea 7 - 18 mg/dL Normal No Jan 20 nitrogen informati 2017 5:35 [Mass/vol on in AM ume] in source Serum or data Plasma Calcium 8.5 - mg/dL Low No Jan 20 [Mass/vol 10.1 informati 2017 5:35 ume] in on in AM Serum or source Plasma data Chloride 98 - 107 mmoL/L High No Jan 20 [Moles/vo informati 2017 5:35 lume] in on in AM Serum or source Plasma data Carbon 21.0 - mmoL/L Normal No Jan 20 dioxide, 32.0 informati 2017 5:35 total on in AM [Moles/vo source lume] in data Serum or Plasma Creatinin 0.55 - mg/dL Normal No Oct 20 e 1.02 informati 2016 5:35 [Mass/vol on in AM ume] in source Serum or data Plasma Creatinin 50 - 200 ML/MIN Normal No Jan 20 e renal informati 2017 5:35 clearance on in AM source predicted data by Cockcroft -Gault formula Estimated 59- ML/MIN No REFERENCE Oct 20 informati RANGE: 2017 5:35 glomerula on in >60 AM r source ML/MIN/1. filtratio data 73 SQUARE n rate METERSIf (GF this patient is -A merican, then multiply theresult by 1.210. Glucose 74 - 106 mg/dL Normal No Oct 20 [Mass/vol informati 2016 5:35 ume] in on in AM Serum or source Plasma data Potassium 3.5 - 5.1 mmoL/L Normal No Jan 20 informati 2017 5:35 [Moles/vo on in AM lume] in source Serum or data Plasma Sodium 136 - 145 mmoL/L Normal No Oct 20 [Moles/vo informati 2017 5:35 lume] in on in AM Serum or source Plasma data CBC W Auto Differential panel in Blood Observa Value Referen Units Interpr Notes Date tion ce etation Range Basophils 0 - 0.2 K/MM3 Normal No Jan 20 inform2016 5:35 [#/volume on in AM ] in source Blood by data Automated count Basophils 0.1 - 2.0 % Normal No Jan 20 /100 informati 2016 5:35 leukocyte on in AM s in source Blood by data Automated count Eosinophi 0.0 - 0.4 K/mm3 Normal No Jan 20 ls informati 2016 5:35 [#/volume on in AM ] in source Blood by data Automated count Eosinophi 0.1 - % Normal No Jan 20 ls/100 12.0 informati 2016 5:35 leukocyte on in AM s in source Blood by data Automated count Granulocy 1.8 - 7.8 K/mm3 Normal No Jan 20 sharifa informati 2016 5:35 [#/volume on in AM ] in source Blood by data Automated count Granulocy 37.0 - % Normal No Jan 20 sharifa/100 80.0 informati 2016 5:35 leukocyte on in AM s in source Blood by data Automated count Hematocri 37.0 - % Low No Jan 20 t [Volume 47.0 informati 2016 5:35 on in AM Fraction] source of Blood data Hemoglobi 12.2 - g/dL Low No Jan 20 n 16.2 informati 2016 5:35 [Mass/vol on in AM ume] in source Blood data Lymphocyt 0.7 - 4.5 K/mm3 Normal No Jan 20 es informati 2016 5:35 [#/volume on in AM ] in source Unspecifi data ed specimen by Automated count Lymphocyt 10 - 50.0 % Normal No Jan 20 es informati 2016 5:35 [#/volume on in AM ] in source Unspecifi data ed specimen by Automated count Erythrocy 27 - 31.2 pg Normal No Jan 20 te mean informati 2016 5:35 corpuscul on in AM ar source hemoglobi data n [Entitic mass] Erythrocy 31.8 - g/dl Low No Jan 20 te mean 35.4 informati 2016 5:35 corpuscul on in AM ar source hemoglobi data n concentra tion [Mass/vol ume] by Automated count Erythrocy 82.2 - fl Normal No Jan 20 te mean 97.8 informati 2016 5:35 corpuscul on in AM ar volume source [Entitic data volume] by Automated count Monocytes 0.1 - 1.0 K/mm3 Normal No Jan 20 inform2016 5:35 [#/volume on in AM ] in source Blood by data Automated count Monocytes 1.7 - 9.3 % Normal No Jan 20 /100 informati 2016 5:35 leukocyte on in AM s in source Blood by data Automated count Platelet 7.4 - fl Normal No Jan 20 mean 10.4 informati 2016 5:35 volume on in AM [Entitic source volume] data in Blood by Automated count Platelets 142 - 424 K/mm3 Normal No Jan 20 inform2016 5:35 [#/volume on in AM ] in source Blood data Erythrocy 4.2 - 5.4 M/mm3 Low No Jan 20 sharifa inform2016 5:35 [#/volume on in AM ] in source Amniotic data fluid Erythrocy 11.5 - % Normal No Jan 20 te 17.5 informati 2016 5:35 distribut on in AM ion width source [Entitic data volume] by Automated count Leukocyte 4.8 - K/MM3 High No Jan 20 s 10.8 2016 5:35 [#/volume on in AM ] in source Blood data Activated clotting time in Blood by Coagulation assay Observa Value Referen Units Interpr Notes Date tion ce etation Range Activated 74 - 125 SEC High No Jan 19 clotting alert 2016 time in on in 12:30 PM Blood by source Coagulati data on assay Activated clotting time in Blood by Coagulation assay Observa Value Referen Units Interpr Notes Date tion ce etation Range Activated 74 - 125 SEC High No Jan 19 clotting alert 2016 time in on in 12:09 PM Blood by source Coagulati data on assay Natriutietic peptide B [Mass/volume] in Serum or Plasma Observa Value Referen Units Interpr Notes Date tion ce etation Range Natriutie 0 - 100 pg/mL Normal No Jan 19 tic 2017 peptide B on in 12:02 AM source [Mass/vol data ume] in Serum or Plasma Lipid 1996 panel in Serum or Plasma Observa Value Referen Units Interpr Notes Date tion ce etation Range Cholester < 200 mg/dL High No Jan 19 ol 2016 [Moles/vo on in 12:02 AM lume] in source Unspecifi data ed specimen Cholester 40 - 60 MG/DL High No Jan 19 ol in HDL 2016 on in 12:02 AM [Mass/vol source ume] in data Serum or Plasma Cholester 0 - 130 mg/dL High No Jan 19 ol in LDL 2016 on in 12:02 AM [Mass/vol source ume] in data Serum or Plasma by calculati on Triglycer 30 - 200 mg/dL Normal No Jan 19 tanya 2016 [Moles/vo on in 12:02 AM lume] in source Serum or data Plasma Cholester 0 - 40 No Normal No Jan 19 ol in informati 2016 VLDL on in on in 12:02 AM [Mass/vol source source ume] in data data Serum or Plasma Thyroxine (T4) [Mass/volume] in Serum or Plasma Observa Value Referen Units Interpr Notes Date tion ce etation Range Thyroxine 4.7 - ug/dl Normal No Jan 19 (T4) 13.3 2016 [Mass/vol on in 12:02 AM ume] in source Serum or data Plasma Thyrotropin [Units/volume] in Serum or Plasma Observa Value Referen Units Interpr Notes Date tion ce etation Range Thyrotrop 0.358 - uIU/ml Normal No Jan 19 in 3.740 2016 [Units/vo on in 12:02 AM lume] in source Serum or data Plasma CBC W Auto Differential panel in Blood Observa Value Referen Units Interpr Notes Date tion ce etation Range Basophils 0 - 0.2 K/MM3 Normal No Jan 192016 [#/volume on in 12:02 AM ] in source Blood by data Automated count Basophils 0.1 - 2.0 % Normal No Jan 19 /2016 leukocyte on in 12:02 AM s in source Blood by data Automated count Eosinophi 0.0 - 0.4 K/mm3 Normal No Jan 19 ls 2016 [#/volume on in 12:02 AM ] in source Blood by data Automated count Eosinophi 0.1 - % Normal No Jan 19 ls/100 12.0 2016 leukocyte on in 12:02 AM s in source Blood by data Automated count Granulocy 1.8 - 7.8 K/mm3 High No Jan 19 sharifa 2016 [#/volume on in 12:02 AM ] in source Blood by data Automated count Granulocy 37.0 - % Normal No Jan 19 sharifa/100 80.0 informati 2016 leukocyte on in 12:02 AM s in source Blood by data Automated count Hematocri 37.0 - % Normal No Jan 19 t [Volume 47.0 informati 2016 on in 12:02 AM Fraction] source of Blood data Hemoglobi 12.2 - g/dL No No Jan 19 n 16.2 informati informati 2016 [Mass/vol on in on in 12:02 AM ume] in source source Blood data data Lymphocyt 0.7 - 4.5 K/mm3 Normal No Jan 19 es informati 2016 [#/volume on in 12:02 AM ] in source Unspecifi data ed specimen by Automated count Lymphocyt 10 - 50.0 % Normal No Jan 19 es informati 2016 [#/volume on in 12:02 AM [...] 9.3 % Normal No Jan 19 /100 informati 2017 leukocyte on in 12:02 AM s in source Blood by data Automated count Platelet 7.4 - fl Normal No Jan 19 mean 10.4 informati 2016 volume on in 12:02 AM [Entitic source volume] data in Blood by Automated count Platelets 142 - 424 K/mm3 Normal No Jan 19 inform2016 [#/volume on in 12:02 AM ] in source Blood data Erythrocy 4.2 - 5.4 M/mm3 Normal No Jan 19 sharifa informati 2016 [#/volume on in 12:02 AM ] in source Amniotic data fluid Erythrocy 11.5 - % Normal No Oct 19 te 17.5 informati 2017 distribut on in 12:02 AM ion width source [Entitic data volume] by Automated count Leukocyte 4.8 - K/MM3 High No Oct 19 s 10.8 informati 2017 [#/volume on in 12:02 AM ] in source Blood data
[2017-02-06 13:59] VITALS: BP 113/55
[2017-02-06] MEDS ORDERED: VERAPAMIL HCL180 M1 PO (14:01)
--- NOTE | 2017-02-06 14:56 | RADIOLOGY REPORT PS360 ---
CHEST(2 VIEWS-NOT PORTABLE) HISTORY: CHEST PAIN, WEAKNESS ORDERING PHYSICIAN: Lisa Sanchez MD PATIENT AGE: 77 years COMPARISON: 01/19/2017 FINDINGS: The cardiomediastinal silhouette and pulmonary vascularity are within normal limits. The lungs are clear without infiltrates, suspicious nodules, or pleural effusions. No acute bony abnormalities. Coronary artery stents are noted. There is minimal mid thoracic curvature convex right IMPRESSION: No acute finding
== END 2017-02-06 14:06 | disposition home or self-care (01) ==
LOC: ER 11:21
PROVIDERS: Emergency Medicine
DX: R07.89 Other chest pain (principal); R00.1 Bradycardia, unspecified; T46.1X5A Adverse effect of calcium-channel blockers, initial encounter; E11.9 Type 2 diabetes mellitus without complications; Z87.891 Personal history of nicotine dependence; K21.9 Gastro-esophageal reflux disease without esophagitis; I25.10 Atherosclerotic heart disease of native coronary artery without angina pectoris

== ENCOUNTER → 2017-03-06 | Outpatient (CLI) | payer MEDICARE, OTHER ==
[~2017-03-06] MED LIST changes: +BISOPROLOL FUMA10 MG PO; +BUPROPION HYDR150 M1 PO; +VERAPAMIL HCL180 M1 PO
--- NOTE | 2017-03-06 14:06 | CARDIOVASCULAR REPORT ---
Cerebrovascular Exam Indications: 780.4 Dizziness and giddiness. IMPRESSIONS 1. The bilateral vertebral arteries are patent with normal antegrade flow. 2. Study suggests less than 20% stenosis involving the right internal carotid artery and the left internal carotid artery. History: Coronary artery disease. Risk factors: Current tobacco use. Hypertension. Hyperlipidemia. Carotid duplex study. Complete study and Doppler flow study including spectral analysis, color and ambrocio scale imaging. Location: Vascular laboratory. Patient status: Outpatient. Tables: (Report amended ) Electronically signed by: Michael Oliveros [id number]
== END ==
LOC: RT 13:15
DX: R42 Dizziness and giddiness (principal)

== ENCOUNTER 2017-03-08 06:24 | Emergency (ER) | payer MEDICARE, OTHER ==
[~2017-03-08] VITALS: Ht 149.9 cm; Wt 57.2 kg
--- NOTE | 2017-03-08 06:43 | Emergency Room Report ---
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 N Clinical Suspician of Infection? N Mental Status: 1 - Regular (Normal Baseline) Sepsis Risk:Possible Sepsis Risk Have you (or family members/close friends) recently traveled outside the [place]? N If Yes, where/when: Have you had exposure to infectious disease within the past month? TB? Other? Specify: Source patient, RN notes reviewed, family, old records Exam Limitations no limitations Comment awoke this am with ant chest pain with palpatation - pt with hx of cad with recent stents Cardiac Chest Pain Chest pain indicative of cardiac No Timing/Duration this morning Severity moderate ALLERGIES Coded Allergies: Antihistamines - Alkylamine (Mild, 01/19/17) Penicillins (Mild, 01/19/17) Sulfa (Sulfonamide Antibiotics) (Mild, 01/19/17) codeine (Mild, 01/19/17) Home Medications Active Scripts ASPIRIN (Aspirin) 81 MG PO DAILY #30 TAB Ref 1 Prov: 01/20/17 Ticagrelor (Brilinta) 90 MG PO BID #60 TAB Ref 3 Prov: 01/20/17 Atorvastatin Calcium (Lipitor 40MG) 40 MG PO QHS #30 TAB Ref 2 Prov: 01/20/17 Verapamil Hcl (Verapamil ER) 180 MG PO DAILY #14 TER Prov: 02/06/17 Reported Medications Omeprazole (Omeprazole 40MG) 40 MG PO DAILY Bupropion Hcl (Bupropion HCl Sr) 150 MG PO BID Bisoprolol Fumarate 10 MG PO DAILY History Medical History General CAD? Yes Angina: No [place]: No Hypertension? Yes Hyperlipidemia? Yes CHF? No DVT? No PE? No COPD? No Asthma? No Anemia? No GERD? Yes Gastric ulcers? No GI Bleed? No Hernia? No Thyroid Problems? No Hypothyroidism? No CVA? No Seizures? No Diabetes? No Insulin Dependent: No Insulin Pump: No Home FSBS? No Renal Insuffiency? No End Stage Renal Disease? No UTI? No Stones? No BPH? No GB Disease: No Nephritic Syndrome? No Asplenia? No Hepatitis? No Sickle Cell Disease? No Arthritis? No Migraines? No Cataracts? No Glaucoma? No MRSA? No HIV? No TB? No Anxiety? No Depression? No Cancer? No More? Yes Additional hx: ABDOMINAL AORTIC ANEURYSM Immunization Hx DT/Tetanus 5-10 YRS Flu Refused Pneumonia Refuses Surgical Hx Previous Surgery?Y Tubal Ligation Hysterect Appendix CARDIAC STENTS X2 2017 Family History Family Hx Diabetes Yes CAD No Hypertension No Hyperlipidemia No Cancer Yes TB No Social History Smoking Hx Smoker: Never Smoker Tobacco: No Packs/day < 1 Pack Alcohol Alcohol: No Drugs none Review of Systems All Other Systems Reviewed and Negative Constitutional denies fever Eyes denies drainage ENT denies: ear pain, epistaxis, throat pain. Respiratory denies cough, denies shortness of breath, denies wheezing Cardiovascular see HPI, chest pain, palpitations Gastrointestinal denies abdominal pain, denies diarrhea, denies vomiting Genitourinary denies: dysuria, frequency, hesitancy, hematuria. Musculoskeletal denies back pain, denies joint pain, denies joint swelling, denies neck pain Skin denies rash Psychiatric/Neurological denies headache, denies seizure Physical Exam Vital Signs Vital Signs Date Time Temp Pulse Resp B/P Pulse O2 O2 Flow FiO2 Ox Delivery Rate 03/08 0751 68 22 149/81 98 03/08 0707 56 22 130/70 98 03/08 0625 97.9 127 22 150/90 98 - WBC >12,000 or <4,000 or 10% bands? 2 or more SIRS Criteria Met? B/P:130/70 MAP:110 Creatinine >2.0? UA output<0.5ml/kg/hr for 2 hrs? Platelet count >100,000? Lactate >2.0mmol/1? INR >1.2 or PTT > than 60 sec? Evidence of Organ Dysfunction? Provider documented clinical suspician of infection? N Sepsis Criteria Count: 2 Sepsis Risk: Possible Sepsis Risk General Appearance no apparent distress Eye Exam - bilateral eye PERRL, bilateral eye EOMI Ear, Nose, Throat normal ENT inspection Neck supple Respiratory Status No: respiratory distress. Lung Sounds bilateral: lungs clear. Cardiovascular no JVD, tachycardia, systolic murmur Peripheral Pulses Pulses normal Yes Gastrointestinal soft Extremities normal inspection Strength 4 Upper Ext (L), 4 Upper Ext (R), 4 Lower Ext (L), 4 Lower Ext (R) Neurologic alert, bpo specialist II-XII nml as tested, no motor/sensory deficits Reflexes Reflexes normal Yes Mental status normal mood/affect Skin intact Comments attempted carotid massage and valsalva with no change Medical Decision Making LABS/Meds/Orders Pt receiving controlled substance in ED? No Results/Orders Laboratory Tests 03/08/17 0820: Troponin I Pending 03/08/17 0630: Sodium 140, Potassium 4.5, Chloride 104, Carbon Dioxide 27, BUN 12, Creatinine 0.9, Estimated Creat Clear 47 L, Estimated GFR (MDRD) 61, Glucose 140 H, Calcium 8.9, Total Bilirubin 0.3, AST 10 L, ALT 20, Alkaline Phosphatase 133 H , Creatine Kinase 33, CK-MB (CK-2) Rel Index 1.5, CK and CKMB Interp 0.5, Troponin I < 0.02, Total Protein 6.8, Albumin 3.7, Globulin 3.1, Albumin/ Globulin Ratio 1.2, PT 9.7, INR 0.90, WBC 9.1, RBC 4.58, Hgb 12.9, Hct 40.9, MCV 89.2, RDW 13.6, Plt Count 283, MPV 7.5, Gran % 59.4, Gran # 5.4, Lymphocytes % 29.8, Monocytes % 6.2, Eosinophils % 4.2, Basophils % 0.3, Lymphocytes # 2.7, Monocytes # 0.6, Eosinophils # 0.4, Basophils # 0.0, PUBS MCHC 31.5 L, MCH 28.1 Current Medication Orders Sig/Cm Start time Last Medication Dose Route Stop Time Status Admin Adenosine 6 MG ONCE ONE 03/08 715 DC 03/08 IV 03/08 0716 0706 Sodium Chloride 1,000 ML .Q4H 03/08 715 AC 03/08 IV 03/08 1114 0706 Sodium Chloride 10 ML PRN PRN 03/08 715 AC IV 03/09 705 Sodium Chloride 1,000 ML .STK-MED ONE 03/08 703 DC IV Adenosine 0 .STK-MED ONE 03/08 657 DC IV Sodium Chloride 10 ML PRN PRN 03/08 645 AC IV 03/09 636 Aspirin 0 .STK-MED ONE 03/08 629 DC .ROUTE Orders Procedure Date/time Status TROPONIN I 03/08 830 Active IV SALINE LOCK 03/08 636 Active PROTHROMBIN TIME 03/08 636 Complete ELECTROCARDIOGRAM REQUEST 03/08 634 Active CBC WITH AUTO DIFF 03/08 634 Complete CARDIAC ENZYMES 03/08 634 Complete CHEM 12 PROFILE 03/08 634 Complete UON-SEDPIT-ASYQAB BY SAME 03/08 TERRIK Active 12 LEAD EKG-SAPPHIRE (INITIAL) 03/08 UNK Active CM/EKG CM/EKG 1 Monitor Rhythm Paroxysmal Tachycardia EKG non-spec. ST/Tw[facility] chgs CM/EKG 2 Monitor Rhythm Normal Sinus Rhythm EKG non-spec. ST/[facility]ave chgs XRAY/CT/US XRAY/CT/US XRAY chest XR interpretation by reviewed by me Xray Results normal/NAD Departure Departure Time of Disposition 0740 Disposition DC Home or Self Care(routine) Clinical Impression Primary Impression: SVT (supraventricular tachycardia) Condition STABLE Referrals Myron Gaston MD (Family) discussed with dr [email or web address] Patient Instructions Paroxysmal Supraventricular Tachycardia Additional Instructions meds as per card Discharge Counseling Counseled pt/family regarding diagnosis, test results, medications/RX, follow up needs ED Critical Care Critical Care No at 0850
--- OUTSIDE RECORDS SUMMARY | 2017-03-08 06:55 | External Medical Summary Rpt | CCD ---
Demographics Preferred Language Yakut Marital Status Unknown Zoroastrianism Affiliation Unknown Race Unknown Ethnic Group Unknown Author Author , RICHARD RAMOS Address Unknown Phone Immunization Unable to retrieve immunization data due to connection failure with Immunization Registry. Please try again later.
--- OUTSIDE RECORDS SUMMARY | 2017-03-08 06:55 | External Medical Summary Rpt | CCD ---
Author Author , RICHARD Organization RICHARD Address Unknown Phone [email or web address] Purpose Continuity of Care Document - 01-19-2017 through 2016 Problems Code Diagnosis DOS Provider Status I48.91 UNSPECIFIED ATRIAL FIBRILLATIO N R00.1 BRADYCARDIA , UNSPECIFIED R07.89 OTHER CHEST PAIN Results Labs Lab Lab Date Result Refere Interp Status Commen Order Detail nces retati t Range on Serum or plasma troponin i.cardiac measu (02-06-2017 13:10) Serum < 0.02 0.00-0. complet or 017 ng/mL 06 ed plasma 13:10 troponi n i.cardi ac measu Comprehensive metabolic panel (02-06-2017 11:25) Protein = 6.4 6.4-8.2 complet total 017 gm/dL ed ser/rogelio 11:25 s ALT = 15 12-78 complet (SGPT) 017 U/L ed ser/rogelio 11:25 s Serum = 11 15-37 complet or 017 U/L ed plasma 11:25 asparta te aminotr ansfera Serum = 138 136-145 complet sodium 017 mmoL/L ed measure 11:25 ment Serum = 4.4 3.5-5.1 complet potassi 017 mmoL/L ed um 11:25 measure ment Serum = 127 74-106 complet or 017 mg/dL ed plasma 11:25 glucose measure ment (mas Serum = 3.0 1.3-3.2 complet globuli 017 gm/dL ed n 11:25 measure ment (mass/v olume) Estimat = 61 59- complet ed 017 ML/MIN ed glomeru 11:25 lar filtrat ion rate (GF Comment: REFERENCE RANGE: >60 ML/MIN/1.73 SQUARE METERS Comment: If this patient is -[place] Citizen, then multiply the Comment: result by 1.210. Estimat = 48 50-200 complet ion of 017 ML/MIN ed creatin 11:25 ine renal clearan ce Serum = 0.9 0.55-1. complet or 017 mg/dL 02 ed plasma 11:25 creatin ine measure ment ( Carbon = 26 21.0-32 complet dioxide 017 mmoL/L .0 ed 11:25 measure ment Serum = 105 98-107 complet or 017 mmoL/L ed plasma 11:25 chlorid e measure ment (mo Serum = 8.6 8.5-10. complet or 017 mg/dL 1 ed plasma 11:25 calcium measure ment (mas Serum = 12 7-18 complet or 017 mg/dL ed plasma 11:25 urea nitroge n measure men Serum = 0.3 0.2-1.0 complet or 017 mg/dL ed plasma 11:25 total bilirub in measure m Serum = 103 46-116 complet or 017 U/L ed plasma 11:25 alkalin e phospha tase nevaeh Serum = 3.4 3.4-5.0 complet or 017 gm/dL ed plasma 11:25 albumin measure ment (mas Serum = 1.1 1.1-1.8 complet or 017 ed plasma 11:25 albumin /globul in mass ra Cardiac enzymes (02-06-2017 11:25) Serum = 1.7 0-4.0 complet or 017 U/L ed plasma 11:25 creatin e kinase MB (CK-M Serum < 0.02 0.00-0. complet or 017 ng/mL 06 ed plasma 11:25 troponi n i.cardi ac measu Serum = 30 26-192 complet or 017 U/L ed plasma 11:25 creatin e kinase measure m Serum < 0.5 0.0-3.6 complet or 017 ng/mL ed plasma 11:25 creatin e kinase MB measu CBC w auto diff (02-06-2017 11:25) Blood = 7.6 4.8-10. complet leukocy 017 K/MM3 8 ed sharifa 11:25 count (number /volume ) Automat = 13.0 11.5-17 complet ed 017 % .5 ed erythro 11:25 cyte distrib ution width Red = 4.07 4.2-5.4 complet blood 017 M/mm3 ed cell 11:25 count Blood = 308 142-424 complet platele 017 K/mm3 ed t count 11: Automat = 8.0 7.4-10. complet ed 017 fl 4 ed blood 11:25 platele t mean volume nevaeh [place] % = 6.8 % 1.7-9.3 complet 017 ed 11: Absolut = 0.5 0.1-1.0 complet e 017 K/mm3 ed monocyt 11:25 e count Automat = 89.3 82.2-97 complet ed 017 fl .8 ed erythro 11:25 cyte mean corpusc ular v Automat = 32.5 31.8-35 complet ed 017 g/dl .4 ed erythro 11:25 cyte mean corpusc ular h Mean = 29.0 27-31.2 complet corpusc 017 pg ed ular 11:25 hemoglo bin (MCH) determ Lymphoc = 29.7 10-50.0 complet yte 017 % ed count, 11:25 blood, automat ed Absolut = 2.3 0.7-4.5 complet e 017 K/mm3 ed lymphoc 11:25 yte count Blood = 11.8 12.2-16 complet hemoglo 017 g/dL .2 ed bin 11: measure ment (mass/v olum Blood = 36.3 37.0-47 complet hematoc 017 % .0 ed rit 11:25 (volume fractio n) Granulo = 59.8 37.0-80 complet cyte 017 % .0 ed percent 11:25 age Blood = 4.5 1.8-7.8 complet granulo 017 K/mm3 ed cytes 11:25 automat ed count (numb Automat 11-06-2 = 3.0 % 0.1-12. complet ed 017 0 ed blood 11:25 eosinop hils/10 0 leukocy t Automat 2 = 0.2 0.0-0.4 complet ed 017 K/mm3 ed blood 11:25 eosinop hil count Baso % = 0.7 % 0.1-2.0 complet 017 ed 11:25 Automat 2 = 0.1 0-0.2 complet ed 017 K/MM3 ed blood 11:25 basophi l count (count/ vo Basic metabolic panel (01-20-2017 05:35) Serum 10-2 = 13 7-18 complet or 017 mg/dL ed plasma 05:35 urea nitroge n measure men Serum = 141 136-145 complet sodium 017 mmoL/L ed measure 05:35 ment Serum 2 = 4.1 3.5-5.1 complet potassi 017 mmoL/L ed um 05:35 measure ment Serum 2 = 96 74-106 complet or 017 mg/dL ed plasma 05:35 glucose measure ment (mas Estimat 2 = 81 59- complet ed 017 ML/MIN ed glomeru 05:35 lar filtrat ion rate (GF Comment: REFERENCE RANGE: >60 ML/MIN/1.73 SQUARE METERS Comment: If this patient is -[place] Citizen, then multiply the Comment: result by 1.210. Estimat 01-20-2 = 64 50-200 complet ion of 017 ML/MIN ed creatin 05:35 ine renal clearan ce Serum 2 = 0.7 0.55-1. complet or 017 mg/dL 02 ed plasma 05:35 creatin ine measure ment ( Carbon 01-20-2 = 26 21.0-32 complet dioxide 017 mmoL/L .0 ed 05:35 measure ment Serum 01-20-2 = 109 98-107 complet or 017 mmoL/L ed plasma 05:35 chlorid e measure ment (mo Serum 2 = 8.2 8.5-10. complet or 017 mg/dL 1 ed plasma 05:35 calcium measure ment (mas CBC w auto diff (01-20-2017 05:35) Blood 01-20-2 = 11.5 4.8-10. complet leukocy 017 K/MM3 8 ed sharifa 05:35 count (number /volume ) Automat = 13.2 11.5-17 complet ed 017 % .5 ed erythro 05:35 cyte distrib ution width Red = 3.94 4.2-5.4 complet blood 017 M/mm3 ed cell 05:35 count Blood = 324 142-424 complet platele 017 K/mm3 ed t count 05:35 Automat = 7.5 7.4-10. complet ed 017 fl 4 ed blood 05:35 platele t mean volume nevaeh [place] % = 7.7 % 1.7-9.3 complet 017 ed 05:35 Absolut = 0.9 0.1-1.0 complet e 017 K/mm3 ed monocyt 05:35 e count Automat = 91.2 82.2-97 complet ed 017 fl .8 ed erythro 05:35 cyte mean corpusc ular v Automat = 31.6 31.8-35 complet ed 017 g/dl .4 ed erythro 05:35 cyte mean corpusc ular h Mean = 28.8 27-31.2 complet corpusc 017 pg ed ular 05:35 hemoglo bin (MCH) determ Lymphoc = 29.4 10-50.0 complet yte 017 % ed count, 05:35 blood, automat ed Absolut = 3.4 0.7-4.5 complet e 017 K/mm3 ed lymphoc 05:35 yte count Blood = 11.5 12.2-16 complet hemoglo 017 g/dL .2 ed bin 05:35 measure ment (mass/v olum Blood = 35.9 37.0-47 complet hematoc 017 % .0 ed rit 05:35 (volume fractio n) Granulo = 62.3 37.0-80 complet cyte 017 % .0 ed percent 05:35 age Blood = 7.2 1.8-7.8 complet granulo 017 K/mm3 ed cytes 05:35 automat ed count (numb Automat = 0.3 % 0.1-12. complet ed 017 0 ed blood 05:35 eosinop hils/10 0 leukocy t Automat = 0.0 0.0-0.4 complet ed 017 K/mm3 ed blood 05:35 eosinop hil count Baso % = 0.3 % 0.1-2.0 complet 017 ed 05:35 Automat 2 = 0.0 0-0.2 complet ed 017 K/MM3 ed blood 05:35 basophi l count (count/ vo Activated clotting time (01-19-2017 12:30) Activat = 278 74-125 complet ed 017 SEC ed clottin 12:30 g time Comment: Comment: 02/16/17 1609: Comment: ACT previously reported as: 275 *H SEC Activated clotting time (01-19-2017 12:09) Activat = 330 74-125 complet ed 017 SEC ed clottin 12:09 g time Cardiac enzymes (01-19-2017 06:51) Serum < 0.02 0.00-0. complet or 017 ng/mL 06 ed plasma 06:51 troponi n i.cardi ac measu Serum = 22 26-192 complet or 017 U/L ed plasma 06:51 creatin e kinase measure m Serum = 1.0 0.0-3.6 complet or 017 ng/mL ed plasma 06:51 creatin e kinase MB measu Serum = 4.5 0-4.0 complet or 017 U/L ed plasma 06:51 creatin e kinase MB (CK-M Cardiac enzymes (01-19-2017 04:00) Serum = 4.3 [...] 017 K/mm3 ed monocyt 00:02 e count [place] % = 5.0 % 1.7-9.3 complet 017 [...] 00:02 urea nitroge n measure men Serum 10-19-2 = 9.1 8.5-10. complet or 017 mg/dL 1 ed plasma 00:02 calcium measure ment (mas Serum = 105 98-107 complet or 017 mmoL/L ed plasma 00:02 chlorid e measure ment (mo Carbon = 27 21.0-32 complet dioxide 017 mmoL/L .0 ed 00:02 measure ment Serum 2 = 0.8 0.55-1. complet or 017 mg/dL 02 ed plasma 00:02 creatin ine measure ment ( Estimat = 51 50-200 complet ion of 017 ML/MIN ed creatin 00:02 ine renal clearan ce Estimat = 70 59- complet ed 017 ML/MIN ed glomeru 00:02 lar filtrat ion rate (GF Comment: REFERENCE RANGE: >60 ML/MIN/1.73 SQUARE METERS Comment: If this patient is -[place] Citizen, then multiply the Comment: result by 1.210. [...] ser/rogelio 00:02 s Thyroxine (01-19-2017 00:02) Thyroxi 2 = 6.9 4.7-13. complet ne 017 ug/dl 3 ed 00:02 Serum or plasma thyroid stimulating horm (01-19-2017 00:02) Serum 01-19-2 = 1.01 0.358-3 complet or 017 uIU/ml .740 ed plasma 00:02 thyroid stimula ting horm Brain natriuretic peptide (01-19-2017 00:02) Brain 10-19-2 = 38 0-100 complet natriur 017 pg/mL ed etic 00:02 peptide Lipid profile (01-19-2017 00:02) Total --2 = 255 < 200 complet cholest 017 [...]
--- OUTSIDE RECORDS SUMMARY | 2017-03-08 06:55 | External Medical Summary Rpt | CCD ---
Demographics Preferred Language Amharic Marital Status Unknown Latter-Day Affiliation Unknown Race Unknown Ethnic Group Unknown Author Author , RICHARD RAMOS Address Unknown Phone Immunization Unable to retrieve immunization data due to connection failure with Immunization Registry. Please try again later.
--- OUTSIDE RECORDS SUMMARY | 2017-03-08 06:55 | External Medical Summary Rpt | CCD ---
Author Author , RICHARD Organization RICHARD Address Unknown Phone [email or web address] Purpose Continuity of Care Document - 01-19-2017 [...] SQUARE METERS Comment: If this patient is -[place], then multiply the Comment: result by 1.210. [...] blood 11:25 platele t mean volume nevaeh [place] % = 6.8 % 1.7-9.3 complet 017 [...] SQUARE METERS Comment: If this patient is -[place], then multiply the Comment: result by 1.210. [...] blood 05:35 platele t mean volume nevaeh [place] % = 7.7 % 1.7-9.3 complet 017 [...] 017 K/mm3 ed monocyt 00:02 e count [place] % = 5.0 % 1.7-9.3 complet 017 [...] SQUARE METERS Comment: If this patient is -[place], then multiply the Comment: result by 1.210. [...]
[2017-03-08 06:56] LABS: HEMOGLOBIN 12.9 g/dL (12.2-16.2); LYMPH # 2.7 K/mm3 (0.7-4.5); LYMPH % 29.8 % (10-50.0)
--- OUTSIDE RECORDS SUMMARY | 2017-03-08 06:56 | External Medical Summary Rpt ---
Author Author RICHARD Production, RICHARD Production Organization [facility]ICHARD [employer] Address Unknown Phone Unavailable Results CBC W Auto Differential panel in Blood Observa Value Referen Units Interpr Notes Date tion ce etation Range Basophils 0 - 0.2 K/MM3 Normal No Feb 06 inform2016 [#/volume on in 11:25 AM ] in source Blood by data Automated count Basophils 0.1 - 2.0 % Normal No Feb 06 /100 2016 leukocyte on in 11:25 AM s in source Blood by data Automated count Eosinophi 0.0 - 0.4 K/mm3 Normal No Feb 06 ls 2016 [#/volume on in 11:25 AM ] in source Blood by data Automated count Eosinophi 0.1 - % Normal No Feb 06 ls/100 12.0 inform2016 leukocyte on in 11:25 AM s in source Blood by data Automated count Granulocy 1.8 - 7.8 K/mm3 Normal No Feb 6 sharifa 2016 [#/volume on in 11:25 AM ] in source Blood by data Automated count Granulocy 37.0 - % Normal No Feb 6 sharifa/100 80.0 2016 leukocyte on in 11:25 AM s in source Blood by data Automated count Hematocri 37.0 - % Low No Feb 06 t [Volume 47.0 2016 on in 11:25 AM Fraction] source of Blood data Hemoglobi 12.2 - g/dL Low No Feb 06 n 16.2 2016 [Mass/vol on in 11:25 AM ume] in source Blood data Lymphocyt 0.7 - 4.5 K/mm3 Normal No Feb 06 es 2016 [#/volume on in 11:25 AM ] in source Unspecifi data ed specimen by Automated count Lymphocyt 10 - 50.0 % Normal No Feb 6 es 2016 [#/volume on in 11:25 AM ] in source Unspecifi data ed specimen by Automated count Erythrocy 27 - 31.2 pg Normal No Feb 6 te mean 2016 corpuscul on in 11:25 AM ar source hemoglobi data n [Entitic mass] Erythrocy 31.8 - g/dl Normal No Feb 06 te mean 35.4 2016 corpuscul on in 11:25 AM ar source hemoglobi data n concentra tion [Mass/vol ume] by Automated count Erythrocy 82.2 - fl Normal No Feb 06 te mean 97.8 2016 corpuscul on in 11:25 AM ar volume source [Entitic data volume] by Automated count Monocytes 0.1 - 1.0 K/mm3 Normal No Feb 06 inform2016 [#/volume on in 11:25 AM ] in source Blood by data Automated count Monocytes 1.7 - 9.3 % Normal No Feb 06 /100 2016 leukocyte on in 11:25 AM s in source Blood by data Automated count Platelet 7.4 - fl Normal No Feb 06 mean 10.4 2016 volume on in 11:25 AM [Entitic source volume] data in Blood by Automated count Platelets 142 - 424 K/mm3 Normal No Feb 062016 [#/volume on in 11:25 AM ] in source Blood data Erythrocy 4.2 - 5.4 M/mm3 Low No Feb 6 sharifa inform2016 [#/volume on in 11:25 AM ] in source Amniotic data fluid Erythrocy 11.5 - % Normal No Feb 06 te 17.5 2016 distribut on in 11:25 AM ion width source [Entitic data volume] by Automated count Leukocyte 4.8 - K/MM3 Normal No Feb 06 s 10.8 2016 [#/volume on in 11:25 AM ] in source Blood data Basic metabolic panel in Blood Observa Value Referen Units Interpr Notes Date tion ce etation Range Urea 7 - 18 mg/dL Normal No Jan 20 nitrogen informati 2016 5:35 [Mass/vol on in AM ume] in source Serum or data Plasma Calcium 8.5 - mg/dL Low No Jan 20 [Mass/vol 10.1 informati 2016 5:35 ume] in on in AM Serum or source Plasma data Chloride 98 - 107 mmoL/L High No Jan 20 [Moles/vo informati 2016 5:35 lume] in on in AM Serum or source Plasma data Carbon 21.0 - mmoL/L Normal No Jan 20 dioxide, 32.0 informati 2016 5:35 total on in AM [Moles/vo source lume] in data Serum or Plasma Creatinin 0.55 - mg/dL Normal No Jan 20 e 1.02 inform2016 5:35 [Mass/vol on in AM ume] in source Serum or data Plasma Creatinin 50 - 200 ML/MIN Normal No Jan 20 e renal inform2016 5:35 clearance on in AM source predicted data by Cockcroft -Gault formula Estimated 59- ML/MIN No REFERENCE Jan 20 informati RANGE: 2016 5:35 glomerula on in >60 AM r source ML/MIN/1. filtratio data 73 SQUARE n rate METERSIf (GF this patient is -[place], then multiply theresult by 1.210. Glucose 74 - 106 mg/dL Normal No Jan 20 [Mass/vol informati 2016 5:35 ume] in on in AM Serum or source Plasma data Potassium 3.5 - 5.1 mmoL/L Normal No Jan 202016 5:35 [Moles/vo on in AM lume] in source Serum or data Plasma Sodium 136 - 145 mmoL/L Normal No Jan 20 [Moles/vo informati 2016 5:35 lume] in on in AM Serum or source Plasma data CBC W Auto Differential panel in Blood Observa Value Referen Units Interpr Notes Date tion ce etation Range Basophils 0 - 0.2 K/MM3 Normal No Jan 202016 5:35 [#/volume on in AM ] in source Blood by data Automated count Basophils 0.1 - 2.0 % Normal No Jan 20 informati 2016 5:35 leukocyte on in AM s in source Blood by data Automated count Eosinophi 0.0 - 0.4 K/mm3 Normal No Jan 20 ls ati 2016 5:35 [#/volume on in AM ] [...] No Jan 20 t [Volume 47.0 informati 2017 5:35 on in AM Fraction] source of Blood data Hemoglobi 12.2 - g/dL Low No Jan 20 n 16.2 informati 2017 5:35 [Mass/vol on in AM ume] in source Blood data Lymphocyt 0.7 - 4.5 K/mm3 Normal No Jan 20 es informati 2017 5:35 [#/volume on in AM ] in source Unspecifi data ed specimen by Automated count Lymphocyt 10 - 50.0 % Normal No Jan 20 es informati 2017 5:35 [#/volume on in AM ] in source Unspecifi data ed specimen by Automated count Erythrocy 27 - 31.2 pg Normal No Jan 20 te mean informati 2017 5:35 corpuscul on in AM ar source hemoglobi data n [Entitic mass] Erythrocy 31.8 - g/dl Low No Jan 20 te mean 35.4 informati 2017 5:35 corpuscul on in AM ar source hemoglobi data n concentra tion [Mass/vol ume] by Automated count Erythrocy 82.2 - fl Normal No Jan 20 te mean 97.8 informati 2017 5:35 corpuscul on in AM ar volume source [Entitic data volume] by Automated count Monocytes 0.1 - 1.0 K/mm3 Normal No Jan 20 informati 2017 5:35 [#/volume on in AM ] in source Blood by data Automated count Monocytes 1.7 - 9.3 % Normal No Oct 20 /100 informati 2017 5:35 leukocyte on in AM s in source Blood by data Automated count Platelet 7.4 - fl Normal No Jan 20 mean 10.4 informati 2017 5:35 volume on in AM [Entitic source volume] data in Blood by Automated count Platelets 142 - 424 K/mm3 Normal No Jan 20 informati 2017 5:35 [#/volume on in AM ] in source Blood data Erythrocy 4.2 - 5.4 M/mm3 Low No Jan 20 sharifa informati 2017 5:35 [#/volume on in AM ] in source Amniotic data fluid Erythrocy 11.5 - % Normal No Jan 20 te 17.5 informati 2017 5:35 distribut on in AM ion width source [Entitic data volume] by Automated count Leukocyte 4.8 - K/MM3 High No Oct 20 s 10.8 2016 5:35 [#/volume on in AM ] in source Blood data Activated clotting time in Blood by Coagulation assay Observa Value Referen Units Interpr Notes Date tion ce etation Range Activated 74 - 125 SEC High 02/16/17 Jan 19 clotting alert 1609:ACT 2017 1:30 time in previousl PM Blood by y Coagulati reported on assay as: 275 *H SEC Activated clotting time in Blood by Coagulation [...] 100 pg/mL Normal No Jan 19 tic 2016 peptide B on in 12:02 AM source [...] Normal No Jan 19 ol in informati inform2016 VLDL on in on in 12:02 AM [Mass/vol source source ume] in data data Serum or Plasma Thyroxine (T4) [Mass/volume] in Serum or Plasma Observa Value Referen Units Interpr Notes Date tion ce etation Range Thyroxine 4.7 - ug/dl Normal No Jan 19 (T4) 13.3 inform2016 [Mass/vol on in 12:02 AM ume] in source Serum or data Plasma Thyrotropin [Units/volume] in Serum or Plasma Observa Value Referen Units Interpr Notes Date tion ce etation Range Thyrotrop 0.358 - uIU/ml Normal No Jan 19 in 3.740 inform2016 [Units/vo on in 12:02 AM lume] in source Serum or data Plasma CBC W Auto Differential panel in Blood Observa Value Referen Units Interpr Notes Date ti ce etation Range Basophils 0 - 0.2 K/MM3 Normal No Jan 192016 [#/volume on in 12:02 AM ] in source Blood by data Automated count Basophils 0.1 - 2.0 % Normal No Jan 192016 leukocyte on in 12:02 AM s in [...] % Normal No Jan 19 sharifa/100 80.0 2016 leukocyte on in 12:02 AM s in source Blood by data Automated count Hematocri 37.0 - % Normal No Jan 19 t [Volume 47.0 2016 on in 12:02 AM Fraction] source of Blood data Hemoglobi 12.2 - g/dL No No Jan 19 n 16.2 informati inform2016 [Mass/vol on in on in 12:02 AM [...] 0.1 - 1.0 K/mm3 Normal No Jan 19 inform2016 [#/volume on in 12:02 AM ] in source Blood by data Automated count Monocytes 1.7 - 9.3 % Normal No Jan 19 /100 inform2016 leukocyte on in 12:02 AM s in source Blood by data Automated count Platelet 7.4 - fl Normal No Jan 19 mean 10.4 inform2016 volume on in 12:02 AM [Entitic source volume] data in Blood by Automated count Platelets 142 - 424 K/mm3 Normal No Jan 19 informati 2016 [#/volume on in 12:02 AM ] in source Blood data Erythrocy 4.2 - 5.4 M/mm3 Normal No Jan 19 sharifa informati 2016 [#/volume on in 12:02 AM ] in source Amniotic data fluid Erythrocy 11.5 - % Normal No Jan 19 te 17.5 informati 2016 distribut on in 12:02 AM ion width source [Entitic data volume] by Automated count Leukocyte 4.8 - K/MM3 High No Jan 19 s 10.8 informati 2016 [#/volume on in 12:02 AM ] in source Blood data
[2017-03-08 07:16] LABS: BUN 12 mg/dL (7-18)
[2017-03-08 07:17] LABS: GFR (ESTIMATED) 61 ML/MIN (59-)
--- NOTE | 2017-03-08 07:44 | RADIOLOGY REPORT PS360 ---
CHEST-PORTABLE HISTORY: CHEST PAIN ORDERING PHYSICIAN: oJrje Breen MD PATIENT AGE: 77 years COMPARISON: 02/06/2017 FINDINGS: The cardiomediastinal silhouette and pulmonary vascularity are within normal limits. The lungs are clear without infiltrates, suspicious nodules, or pleural effusions. No acute bony abnormalities. 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
--- NOTE | 2017-03-08 07:44 | RADIOLOGY REPORT PS360 ---
CHEST-PORTABLE HISTORY: CHEST PAIN ORDERING PHYSICIAN: Jorje Breen MD PATIENT AGE: 77 years COMPARISON: 02/06/2017 FINDINGS: The cardiomediastinal silhouette and pulmonary vascularity are within normal limits. The lungs are clear without infiltrates, suspicious nodules, or pleural effusions. No acute bony abnormalities. 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
--- NOTE | 2017-03-08 08:56 | CONSULT NOTE ---
Standard Demographics Patient Demo Date of Consultation: 03/08/17 Referring Provider: Irma Breen MD Reason for Consultation: SVT PRIMARY DIAGNOSIS: chest pain, palpitations Problem list Problem list: 1. Tobacco use of one half to one pack per day 60 years. 2. Hypertension 3. 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 Increased bisoprolol to 10 mg daily, 03/08/2017. 4. History of abdominal aortic aneurysm, last reported measurement of 4.6 cm approximately 2015. A. Abd U/S, 01/2017, 4 cm 5. History of prediabetes per patient. She does not take medication and controls her blood sugars with her diet. 6. CAD A. 3 vessel disease with ADÁN to prox Cx, LAD and RCA. 01/2017. History of present illness: History of present illness: 77 yo WF seen in ER for palpitations and chest pain that awoke her from sleep last night. Chest pain radiated into the neck and was associated with SOA. Symptoms are similar to what she has had in the past but the chest pains were not as severe. EKG in ER showed what appears to be re-entrant tachycardia at 125 bpm. Pt was treated in ER with 6 mg of adenosine successfully to sinus rhythm with frequent PAC's. Symptoms of chest pain resolved. Initial troponin is normal. Recently, bisoprolol and verapamil were decreased due to symptoms of fatigue. Cardiology consulted for evaluation and recommendations. Past Medical History: General: Hypertension Yes CVA No Seizures No TB No COPD No Asthma No Diabetes No Insulin Dependent No Insulin Pump No Angina No [place] No Hyperlipidemia Yes Urinary No Cancer No Rheumatic H.D. No Ulcers No MRSA No GB Disease No Other ACID REFLUX Additional hx ABDOMINAL AORTIC ANEURYSM Past Surgical HX: Previous Surgery?Y Tubal Ligation Hysterect Appendix CARDIAC STENTS X2 2017 Allergies Coded Allergies: Antihistamines - Alkylamine (Mild, 01/19/17) Penicillins (Mild, 01/19/17) Sulfa (Sulfonamide Antibiotics) (Mild, 01/19/17) codeine (Mild, 01/19/17) Home medications: Active Scripts ASPIRIN (Aspirin) 81 MG PO DAILY #30 TAB Ref 1 Prov: 01/20/17 Ticagrelor (Brilinta) 90 MG PO BID #60 TAB Ref 3 Prov: 01/20/17 Atorvastatin Calcium (Lipitor 40MG) 40 MG PO QHS #30 TAB Ref 2 Prov: 01/20/17 Verapamil Hcl (Verapamil ER) 180 MG PO DAILY #14 TER Prov: 02/06/17 Reported Medications Omeprazole (Omeprazole 40MG) 40 MG PO DAILY Bupropion Hcl (Bupropion HCl Sr) 150 MG PO BID Bisoprolol Fumarate 10 MG PO DAILY Current Medications: Current Medications Adenosine 6 MG ONCE ONE IV (DC) Sodium Chloride 1,000 ML .Q4H IV Sodium Chloride 10 ML PRN PRN IV Sodium Chloride 1,000 ML .STK-MED ONE IV (DC) Adenosine 0 .STK-MED ONE IV (DC) Sodium Chloride 10 ML PRN PRN IV Aspirin 0 .STK-MED ONE .ROUTE (DC) Immunization HX DT/Tetanus 5-10 YRS AGO Flu Refused Pneumonia Refuses Family history Family HX Family Hx Insignificant No Diabetes Yes CAD No Hypertension No Hyperlipidemia No Cancer Yes TB No Social Hx: Smoking HX Tobacco No Packs/day < 1 PACK Alcohol Alcohol: No Hx of Drug Use Drug Use? No Review of systems: Constitutional weakness. Respiratory see HPI, shortness of breath. Cardiovascular see HPI, chest pain, palpitations Gastrointestinal/Abdominal No no symptoms reported Genitourinary No: no symptoms reported. Musculoskeletal No: no symptoms reported. Neurological No: no symptoms reported. Exam: Admission Vital Signs: 1ST Vital Signs Result Date Time Pulse Ox 98 03/08 625 B/P 150/90 03/08 625 Temp 97.9 03/08 625 Pulse 127 03/08 625 Resp 22 03/08 625 Last Vital Signs: Vital Signs Result Date Time Pulse Ox 98 03/08 751 B/P 149/81 03/08 751 Pulse 68 03/08 751 Resp 22 03/08 751 Temp 97.9 03/08 625 Exam General appearance: alert, awake, no acute distress Neck: no carotid bruit, no JVD Cardiovascular: regular rate & rhythm, no murmur Respiratory: clear to auscultation, good air movement ABD: soft, no tenderness Extremities: moves all, no peripheral edema Neuro: alert, intact, oriented Laboratory data: Laboratory Tests 03/08/17 0630: Sodium 140, Potassium 4.5, Chloride 104, Carbon Dioxide 27, BUN 12, Creatinine 0.9, Estimated Creat Clear 47 L, Estimated GFR (MDRD) 61, Glucose 140 H, Calcium 8.9, Total Bilirubin 0.3, AST 10 L, ALT 20, Alkaline Phosphatase 133 H , Creatine Kinase 33, CK-MB (CK-2) Rel Index 1.5, CK and CKMB Interp 0.5, Troponin I < 0.02, Total Protein 6.8, Albumin 3.7, Globulin 3.1, Albumin/ Globulin Ratio 1.2, PT 9.7, INR 0.90, WBC 9.1, RBC 4.58, Hgb 12.9, Hct 40.9, MCV 89.2, RDW 13.6, Plt Count 283, MPV 7.5, Gran % 59.4, Gran # 5.4, Lymphocytes % 29.8, Monocytes % 6.2, Eosinophils % 4.2, Basophils % 0.3, Lymphocytes # 2.7, Monocytes # 0.6, Eosinophils # 0.4, Basophils # 0.0, PUBS MCHC 31.5 L, MCH 28.1 Plan Assessment: 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 Will increase bisoprolol to 10 mg daily and continue Verapamil SR 180 mg daily. OK for discharge home and will refer to Dr. Orellana in [place], [place] for further evaluation and treatment. Pt to follow up in our office in one week. 2. CAD with recent ADÁN. On DAPT. Clinically stable. 3. HTN 4. Abdominal Aortic Aneurysm, infrarenal, 4 cm and stable. Plan: Discussed with Dr. Rey. See above. at 0856
[2017-03-08 09:09] VITALS: BP 149/81
== END 2017-03-08 09:09 | disposition home or self-care (01) ==
LOC: ER 06:24
PROVIDERS: Emergency Medicine
DX: I47.1 Supraventricular tachycardia (principal); I10 Essential (primary) hypertension; E78.5 Hyperlipidemia, unspecified; Z86.79 Personal history of other diseases of the circulatory system